=== PATIENT | female | born 1940 | race Caucasian/White ===

== ENCOUNTER 2019-07-20 13:54 | Outpatient (RCR) | payer MEDICARE, SELFPAY ==
--- NOTE | 2019-07-20 16:01 | PTOPEVAL ---
Thank you for referring this patient to [facility]. Please review, sign, date and return this plan of care JANICE. I agree with and certify that the following plan of care is medically necessary. Referring Physician Date Admitting Provider: Attending Provider: PHYSICIAN NOT ON STAFF Referring Provider: *PT Outpatient Evaluation Start: 07/20/19 13:56 Freq: Status: Active Protocol: Document 07/20/19 14:05 Yanely (Rec: 07/20/19 14:54 [facility] [id number]) Therapy Assessment Status Assessment Status Assessment Status Evaluation Evaluation Information Problem Diagnosis s/p lumbar fusion Onset 05/15/19 Subjective Information patient reports she had a Query Text:As Reported By Patient/ lumbar fusion to the spine on Family 02/02/19. she reports she has been walking a bit and doing some exercises at home on her own. she reports she is now coming to therapy for improved core stability and endurance with walking and activities. Prior Level of Function Comments Additional Prior Level of Function patient reports prior to her Comments fusion, she reports she was in a lot of pain in the low back . she reports she now has no pain in the low back. she reports she is still weak in her core and struggles with lifting and walking for increased time and distance. patient reports MD says no treadmill exercise and no lifting 10lbs or more. Pain Assessment Timing of Pain Assessment Timing of Pain Assessment Assessment Pain Scale Pain Scale Used Numeric (1 - 10) Self Report Pain Assessment Lower Back Reported Pain Level 0 Pain Score Pain Score 0: Self Report Cervical and Lumbar ROM Lumbar ROM Lumbar Flexion Active Ankle Query Text:Hands to: Lumbar Extension (0-40) 20 Query Text:Active in Degrees Lumbar Lateral Flexion Right (0-40) 20 Query Text:Active in Degrees Lumbar Lateral Flexion Left (0-40) 20 Query Text:Active in Degrees Lower Extremity Range of Motion General Lower Extremity Range of Motion Reason Not Measured WFL/Left,WFL/Right Gross Lower Extremity Range of Motion except 0 degrees bilateral Comments AROM hip extension Cervical and Lumbar Muscle Testing Lumbar Strength Upper Abdominal Strengt
--- NOTE | 2019-08-15 14:48 | PTOPEVAL ---
Thank you for referring this patient to [facility]. Please review, sign, date and return this plan of care JANICE. I agree with and certify that the following plan of care is medically necessary. Referring Physician Date Admitting Provider: Attending Provider: PHYSICIAN NOT ON STAFF Referring Provider: *PT Outpatient Evaluation Start: 07/20/19 13:56 Freq: Status: Active Protocol: Document 08/15/19 14:14 GIULIANA (Rec: 08/15/19 14:45 GIULIANA [id number]) Therapy Assessment Status Assessment Status Assessment Status Re-evaluation Evaluation Information Problem Diagnosis s/p lumbar fusion Onset 05/15/19 Subjective Information Pt. reports that her back does Query Text:As Reported By Patient/ feel stronger. She reports Family that her walking has improved significantly since beginning rehab. She reports that she still has concern regarding her endurance and ability to walk an adequate distance. She reports that she can complete a full 6 minutes of walking but no longer without fatigue. Pain Assessment Pain Scale Pain Scale Used Numeric (1 - 10) Self Report Pain Assessment Lower Back Reported Pain Level 0 Pain Score Pain Score 0: Self Report Cervical and Lumbar Muscle Testing Lumbar Strength Upper Abdominal Strength 4-Good- Lower Abdominal Strength 3 Fair Lumbar Functional Strength Comments Pt. maintains pelvic tilt to 40 degrees bilateral hip flexion in SLR position. Lower Extremity Muscle Strength Testing Hip Strength Bilateral Hip Flexion Strength 5 Normal Hip Extension Strength 4+ Good + Hip Abduction Strength 4 Good Knee Strength Right Knee Flexion Strength 5 Normal Knee Extension Strength 5 Normal Left Knee Flexion Strength 5 Normal Knee Extension Strength 5 Normal Ankle Strength Bilateral Ankle Dorsiflexion Strength 5 Normal Muscle Length Testing Muscle Length Testing Left Hamstring Length 10 Query Text:(90 - 90 Position) Right Hamstring Length 10 Query Text:(90 - 90 Position) Palpation Assessment Palpation Palpation continue to note moderate tightness of the lumbar paraspinals on this date. Gait Assessment 6 Minute Walk Total Distance (feet) 700 Number of Breaks During Te
== END 2019-09-26 09:22 | disposition home or self-care (01) ==
LOC: CHSPT 13:54
PROVIDERS: PCP Internal Medicine
DX: Z98.890 Other specified postprocedural states (principal)
CPT/HCPCS: 97110; 97161; 97530

== ENCOUNTER 2022-01-01 14:15 | Outpatient (CLI) | payer MEDICARE, OTHER, SELFPAY ==
--- NOTE | ~2022-01-01 | MR_ITS ---
EXAMINATION: MR lumbar spine wo con DATE: 01/01/2022 15:38 INDICATION: Spinal stenosis TECHNIQUE: Magnetic resonance imaging (MRI) of the lumbar spine was performed without intravenous con trast. Sequences included sagittal T2-weighted FSE, sagittal T2-weighted FS FSE, sagittal T1-weighted FSE, and axial T2-weighted FSE. COMPARISON: None FINDINGS: Discectomies and anterior spinal fusion with interbody bone graft cages at L2-L3 through L4-L5. There are also L2-L4 laminectomies and L2-L5 posterior spinal fusion with bilateral vertical jr and pedic le screw fixations. 1-2 mm anterolisthesis L3 on L4. Chronic minimal anterior wedging at T11. Bone ma rrow signal is normal. Annular fissure and mild disc height loss at L5-S1. There is a right paracentr al anterior disc extrusion with disc material extending 1.5 cm caudal to the level of the superior en dplate of S1. Mild disc height loss at T10-T11. The conus medullaris terminates at L1. There is zak l signal in the caudal spinal cord. Paravertebral soft tissues are unremarkable. No abnormally enhanc ing lesions identified. The following disc levels are specifically discussed: T12-L1: The disc does not extend beyond the endplate margin. There is mild bilateral facet joint oste oarthritis. There is no neural foraminal stenosis. There is no central canal stenosis. L1-L2: Disc is mildly bulging. There is hypertrophy of the ligamentum flavum. There is moderate bila teral facet joint osteoarthritis. There is mild bilateral neural foraminal stenosis. There is moderat e central canal stenosis. L2-L3: Combined anterior and posterior spinal fusion There is mild left neural foraminal stenosis. Th ere is no central canal stenosis. L3-L4: Combined anterior and posterior spinal fusion along with posterior decompression with L2 and L 3 laminectomies. There is no neural foraminal stenosis. There is no central canal stenosis. L4-L5: Combined anterior and posterior spinal fusion along with posterior decompression with L3 and L 4 laminectomies.. There is mild bilateral neural foraminal stenosis. There is no central canal stenos is. L5-S1: Disc is bulging superimposed annular fissure. There is severe bilateral facet joint osteoarthr itis. There is mild bilateral neural foraminal stenosis. There is no central canal stenosis. IMPRESSION: 1. L2-L4 laminectomies with instrumented anterior and posterior spinal fusion at L2-L5. 2. Mild lumbar and lower thoracic spondylosis. Reviewed, dictated and finalized at location A. IMPRESSION: 1. L2-L4 laminectomies with instrumented anterior and posterior spinal fusion a t L2-L5. 2. Mild lumbar and lower thoracic spondylosis.
== END 2022-01-01 14:16 | disposition home or self-care (01) ==
PROVIDERS: PCP Internal Medicine; Visit Provider Internal Medicine
DX: M48.00 Spinal stenosis, site unspecified (principal); M47.894 Other spondylosis, thoracic region; M47.896 Other spondylosis, lumbar region; Z98.1 Arthrodesis status
CPT/HCPCS: 72148

== ENCOUNTER 2022-03-10 13:49 | Outpatient (RCR) | payer MEDICARE, OTHER, SELFPAY ==
--- NOTE | 2022-03-10 15:29 | PTOPEVAL1 ---
Evaluation Information Assessment Status Evaluation Diagnosis back pain Onset 02/07/2022 Subjective Information Pt reports severe back pain. She had a fusion L3- L5 5 years ago, and fusion L2-L3 2 years ago. She gets epidurals in her back (for about 2 years). When her pain started, she had pain in the central low back and bilateral buttocks and legs. She feels like now she only has pain in the back, R buttocks, and R leg. She cannot seem to get much of any relief. Pt reports no pain when sitting or laying, but has pain when standing and walking. She reports sleep has been okay as long as she gets into the right position. Reports N/T in the R leg, denies weakness in the leg since she is able to use her cane. Reports no falls. She reports she wants to be able to shop again. Reported Pain Level Pain Score 7: Self Report Assessment PT Clinical Summary Pt presents to physical therapy with low back and R hip pain and demonstrates decreased strength, decreased mobility, and antalgic gait. These deficits limit her ability to walk and stand without pain or difficulty as needed for her activities at home. She was provided with an HEP focused on improving mobility, strength, and core stability within her tolerance. She will benefit from skilled PT to facilitate symptom relief, improve the aforementioned impairments, and return to functional and recreational activities. Plan of Care Interventions Electrical Stimulation,Gait Training,Hot Pack/Cold Pack,Manual Therapy,Neuro Re-education, Therapeutic Activities,Therapeutic Exercise PT Services Indicated Yes Treatment Frequency and 2x week for 10 visits Duration These treatments will address the objective and functional deficits as defined above. The patient will be advanced safely and appropriately in order for the patient to progress towards his/her prior level of function. Additional exercises will be introduced and as well as a comprehensive home exercise program upon discharge, if needed, ?to ensure carryover of functional gains achieved in the clinic. This treatment plan has been reviewed and agreement upon by the patient.
== END 2022-03-14 13:58 | disposition home or self-care (01) ==
LOC: CHSPT 13:49
PROVIDERS: PCP Internal Medicine; Visit Provider Internal Medicine
DX: M54.9 Dorsalgia, unspecified (principal)
CPT/HCPCS: 97014; 97110; 97140; 97161; G0283

== ENCOUNTER 2022-03-17 15:15 | Outpatient (CLI) | payer MEDICARE, OTHER, SELFPAY ==
[2022-03-17 15:42] LABS: Basophils Percent Auto 0.1 % (0.2-1.2); Eosinophils Absolute Auto 0.1 K/mm3 (0-0.3); Eosinophils Percent Auto 1.3 % (0-4.4); Hematocrit 27.7 % (37.0-47.0); Hemoglobin 8.7 g/dL (12.0-15.0); Immature Granulocyte Absolute 0.08 K/mm3 (0.00-0.031); Immature Reticulocyte Fraction 8.5 % (3.0-15.9); Lymphocytes Absolute Auto 1.43 K/mm3 (0.9-3.2); Lymphocytes Percent Auto 18.6 % (18.3-44.2); Mean Corpuscular HGB Conc 31.4 g/dl (32-36); Mean Corpuscular Hemoglobin 30.7 pg (26-34); Mean Corpuscular Volume 97.9 fl (80-100); Mean Platelet Volume 8.2 fl (7.4-10.4); Monocytes Absolute Auto 0.6 K/mm3 (0.1-0.6); Monocytes Percent Auto 8.1 % (2.6-8.5); Neutrophils Absolute Auto 5.5 K/mm3 (1.3-6.7); Neutrophils Percent Auto 70.9 % (45.5-73.1); Platelet Count Result 214 k/mm3 (150-375); Red Blood Count 2.83 M/mm3 (4.2-5.4); Red Cell Distribution Width 13.4 % (11.5-14.5); Reticulocyte Hemoglobin Conten 35.2 pg (28.2-35.7); Reticulocyte Percent 3.66 % (0.7-4.3); White Blood Count 7.7 K/mm3 (4.5-10.0)
[2022-03-17 16:29] LABS: Iron 46 ug/dL (37-170)
[2022-03-17 16:31] LABS: Alanine Aminotransferase 24 U/L (6-35); Albumin Level 3.9 g/dL (3.5-5.1); Alkaline Phosphatase 63 U/L (38-126); Anion Gap 13 mmol/L (8-16); Aspartate Amino Transferase 26 U/L (14-36); Bilirubin,Total 0.3 mg/dL (0.2-1.3); Blood Urea Nitrogen 46 mg/dL (7-17); Calcium 9.2 mg/dL (8.4-10.2); Carbon Dioxide 23 mmol/L (22-30); Chloride 101 mmol/L (98-107); Estimated Glomerular Filt Rate 24; Glucose 272 mg/dL (65-110); Potassium 4.9 mmol/L (3.4-5.0); Sodium 137 mmol/L (137-145)
[2022-03-17 16:38] LABS: Immunoglobulin A 120 mg/dL (70-400); Immunoglobulin G 465 mg/dL (700-1600); Immunoglobulin M 75 mg/dL (40-230)
[2022-03-17 16:41] LABS: Percent Iron Saturation 16 % (20-50)
[2022-03-17 17:37] LABS: Folic Acid > 20.0 ng/mL (2.76->20)
[2022-03-19 22:56] LABS: Albumin 3.5 g/dL (3.8-4.8); Alpha 1 Globulin 0.3 g/dL (0.2-0.3); Alpha 2 Globulin 1.1 g/dL (0.5-0.9); Beta 1 Globulin 0.4 g/dL (0.4-0.6); Gamma Globulin 0.5 g/dL (0.8-1.7); Protein, Total 6.2 g/dL (6.1-8.1)
[2022-03-20 07:21] LABS: Kappa\\Lambda Light Chains 0.87 (0.26-1.65); Lambda Light Chain 24.6 mg/L (5.7-26.3)
== END 2022-03-17 15:16 | disposition home or self-care (01) ==
PROVIDERS: PCP Internal Medicine; Visit Provider Internal Medicine Hematology & Oncology
DX: D64.9 Anemia, unspecified (principal)
CPT/HCPCS: 36415; 80053; 82607; 82728; 82746; 82784; 83540; 83550; 83883; 84155; 84165; 85025; 85046

== ENCOUNTER 2022-03-27 15:08 | Outpatient (CLI) | payer MEDICARE, OTHER, SELFPAY ==
--- NOTE | ~2022-03-27 | US_ITS ---
US arterial ankle brachial ind INDICATION: Claudication. Hip pain. TECHNIQUE: Segmental pressures and plethysmographic and Doppler waveforms of the brachial and lower e xtremity arteries were obtained. COMPARISON: None. FINDINGS: Right and left brachial artery pressures of 177 mm Hg and 175 mm Hg, respectively, are concordant (no rmal difference <= 30 mmHg). The right ankle-brachial index (ARIK) is 1.19 (normal >= 0.9-1.0). The right great toe-brachial index (TBI) is 0.97 (normal >= 0.60). The left ARIK is 1.19. The left TBI is 0.76. IMPRESSION: 1. Normal bilateral ankle and toe brachial indices. Reviewed, dictated and finalized at location B.
== END 2022-03-27 15:09 | disposition home or self-care (01) ==
LOC: CHSIMG 15:10
PROVIDERS: PCP Internal Medicine; Visit Provider Internal Medicine
DX: M25.551 Pain in right hip (principal); I73.9 Peripheral vascular disease, unspecified
CPT/HCPCS: 93922

== ENCOUNTER 2023-04-02 14:29 | Outpatient (CLI) | payer MEDICARE, OTHER, SELFPAY ==
--- NOTE | ~2023-04-02 | CT_ITS ---
EXAMINATION: CT lumbar spine wo con DATE: 04/02/2023 15:27 INDICATION: Spinal stenosis, lumbosacral region. TECHNIQUE: Computed tomography (CT) of the lumbar spine was performed without intravenous contrast. A utomated exposure control and iterative reconstruction technique were employed. The dose-length produ ct was 754.12 mGy-cm. COMPARISON: Lumbar spine MRI 04/02/2023 FINDINGS: There is 3 mm anterolisthesis of L3 on L4. Vertebral body heights are normal. There are lucius nges of anterior and posterior fusion procedures from L2 to L5 with interbody devices and pedicle scr ews. There is severely decreased disc height at L5-S1 with endplate remodeling. The following disc le vels are specifically discussed: L1-L2: The disc is bulging. There is severe bilateral facet joint osteoarthritis. There is mild later al neural foraminal stenosis. There is mild central canal stenosis. L2-L3: There is no facet joint hypertrophy. There is mild left neural foraminal stenosis. There is no central canal stenosis. There is posterior decompression. L3-L4: There is no facet joint hypertrophy. There is no neural foraminal stenosis. There is no centra l canal stenosis. There is posterior decompression. L4-L5: There is no facet joint hypertrophy. There is mild lateral neural foraminal stenosis. There is no central canal stenosis. There is posterior decompression. L5-S1: The disc is bulging. There is severe bilateral facet joint osteoarthritis. There is moderate b ilateral neural foraminal stenosis. There is mild central canal stenosis. IMPRESSION: 1. Severe lower lumbar spondylosis. 2. Anterior and posterior fusion procedures from L2 to L5. Reviewed, dictated and finalized at location E.
--- NOTE | ~2023-04-02 | MR_ITS ---
EXAMINATION: MR lumbar spine wo con DATE: 04/02/2023 15:13 INDICATION: Spinal stenosis, lumbosacral region. TECHNIQUE: Magnetic resonance imaging (MRI) of the lumbar spine was performed without intravenous con trast. Sequences included sagittal T2-weighted FSE, sagittal T2-weighted FS FSE, sagittal T1-weighted FSE, and axial T2-weighted FSE. COMPARISON: Lumbar spine MRI 706/ FINDINGS: There is 3 mm anterolisthesis of L3 on L4. There are changes of anterior and posterior fusi on procedures from L2 to L5 with discectomies, interbody devices, and pedicle screws. There is severe ly decreased disc height at L5-S1 with endplate remodeling. The distal spinal cord signal intensity i s normal. The conus medullaris is at L1. The following disc levels are specifically discussed: L1-L2: The disc is bulging. There is severe bilateral facet joint osteoarthritis. There is mild bilat eral neural foraminal stenosis. There is mild central canal stenosis. L2-L3: There is mild left facet joint hypertrophy. There is mild left neural foraminal stenosis. Ther e is no central canal stenosis. There is posterior decompression. L3-L4: There is no facet joint hypertrophy. There is no neural foraminal stenosis. There is no centra l canal stenosis. There is posterior decompression. L4-L5: There is no facet joint hypertrophy. There is mild bilateral neural foraminal stenosis. There is no central canal stenosis. There is posterior decompression. L5-S1: The disc is bulging and has an annular fissure. There is severe bilateral facet joint osteoart hritis. There is moderate bilateral neural foraminal stenosis. There is mild central canal stenosis. IMPRESSION: 1. Severe lower lumbar spondylosis, worsened from 01/01/2022. 2. Anterior and posterior fusion procedures from L2 to L5. Reviewed, dictated and finalized at location E.
== END 2023-04-02 14:30 | disposition home or self-care (01) ==
PROVIDERS: PCP Internal Medicine; Visit Provider Neurological Surgery
DX: M48.07 Spinal stenosis, lumbosacral region (principal); M47.896 Other spondylosis, lumbar region; Z98.1 Arthrodesis status
CPT/HCPCS: 72131; 72148

== ENCOUNTER 2023-05-06 09:37 | Outpatient (CLI) | payer MEDICARE, OTHER, SELFPAY ==
--- NOTE | ~2023-05-06 | US_ITS ---
EXAMINATION: US renal BI DATE: 05/06/2023 10:19 INDICATION: Chronic kidney disease TECHNIQUE: Multiple grayscale and Doppler ultrasound images of the kidneys were obtained. COMPARISON: None. FINDINGS: The right kidney measures 10.5 x 5.0 x 4.7 cm. The left kidney measures 10.0 x 4.1 x 4.7 cm . The kidneys demonstrate increased parenchymal echogenicity. There is no hydronephrosis. The bladder is normal. IMPRESSION: 1. Medical renal disease. Reviewed, dictated and finalized at location B. LUGGER IMPRESSION: 1. Medical renal disease.
[2023-05-06 10:26] LABS: Hematocrit 30.9 % (35.0-42.0); Hemoglobin 9.7 g/dL (11.7-13.8); Mean Corpuscular HGB Conc 31.4 g/dL (32.0-36.0); Mean Corpuscular Hemoglobin 29.6 pg (27.0-31.0); Mean Corpuscular Volume 94.2 fL (78.0-102.0); Mean Platelet Volume 8.5 fl (9.2-11.8); Platelet Count Result 211 K/mm3 (150-420); Red Blood Count 3.28 M/mm3 (4.20-5.40); Red Cell Distribution Width 13.8 % (11.6-14.4); White Blood Count 7.4 K/mm3 (4.8-10.8)
[2023-05-06 10:50] LABS: Albumin Level 3.7 g/dL (3.4-5.0); Anion Gap 10 mmol/L (8-16); Blood Urea Nitrogen 25 mg/dL (7-18); Calcium 9.3 mg/dL (8.5-10.1); Carbon Dioxide 28 mmol/L (21-32); Chloride 100 mmol/L (98-108); Estimated Glomerular Filt Rate 38; Glucose 124 mg/dL (70-99); Osmolality Calculated 291 mOsm/kg (285-295); Phosphorus 3.6 mg/dL (2.6-4.7); Potassium 3.8 mmol/L (3.5-5.1); Sodium 138 mmol/L (136-145)
[2023-05-09 21:24] LABS: Parathyroid Intact 52 pg/mL (14-64)
== END 2023-05-06 09:38 | disposition home or self-care (01) ==
LOC: CHSIMG 09:39
PROVIDERS: PCP Internal Medicine; Visit Provider Internal Medicine Nephrology
DX: M46.1 Sacroiliitis, not elsewhere classified (principal); N18.32 Chronic kidney disease, stage 3b
CPT/HCPCS: 36415; 76775; 80069; 83970; 85027

== ENCOUNTER 2023-08-13 13:33 | Outpatient (CLI) | payer MEDICARE, OTHER, SELFPAY ==
[2023-08-13 14:20] LABS: Hematocrit 33.1 % (37.0-47.0); Hemoglobin 10.3 g/dL (12.0-15.0); Mean Corpuscular HGB Conc 31.1 g/dl (32-36); Mean Corpuscular Hemoglobin 28.7 pg (26-34); Mean Corpuscular Volume 92.2 fl (80-100); Mean Platelet Volume 9.1 fl (7.4-10.4); Platelet Count Result 238 k/mm3 (150-375); Red Blood Count 3.59 M/mm3 (4.2-5.4); Red Cell Distribution Width 14.2 % (11.5-14.5); White Blood Count 7.4 K/mm3 (4.5-10.0)
[2023-08-13 14:20] LABS: Appearance Urine Clear (Clear); Bilirubin Urine Negative (Negative); Blood Urine Negative (Negative); Color Urine Yellow (Yellow); Glucose Urine UA Negative (Negative); Ketones Urine Negative (Negative); Leukocyte Esterase Ur Negative LEU/UL (Negative); Nitrate Urine Negative (Negative); Protein Urine Negative (Negative); Specific Grav Ur 1.006 (1.001-1.035); Urobilinogen Urine 0.2 mg/dL (<2.0); pH Urine 7.5 (5.0-9.0)
[2023-08-13 14:28] LABS: Anion Gap 10 mmol/L (8-16); Blood Urea Nitrogen 30 mg/dL (7-17); Calcium 9.9 mg/dL (8.4-10.2); Carbon Dioxide 27 mmol/L (22-30); Chloride 103 mmol/L (98-107); Estimated Glomerular Filt Rate 43; Glucose 134 mg/dL (65-110); Potassium 4.1 mmol/L (3.4-5.0); Sodium 140 mmol/L (137-145)
[2023-08-13 14:31] LABS: Prothrombin Time 13.8 Seconds (11.1-14.7)
[2023-08-13 14:32] LABS: Partial Thromboplastin Time 35.3 SECONDS (22.3-36.8)
[2023-08-13 14:52] LABS: Add Urine Microscopic? NO
== END 2023-08-13 13:34 | disposition home or self-care (01) ==
LOC: ANHSURGERY 13:39
PROVIDERS: PCP Internal Medicine; Visit Provider Neurological Surgery
DX: N18.32 Chronic kidney disease, stage 3b (principal); M48.061 Spinal stenosis, lumbar region without neurogenic claudication; Z01.818 Encounter for other preprocedural examination
CPT/HCPCS: 36415; 80048; 81003; 85027; 85610; 85730; 86850; 86900; 86901

== ENCOUNTER 2023-08-19 14:44 | Observation (INO) | payer MEDICARE, OTHER, SELFPAY ==
[2023-08-06 12:03] VITALS: BMI 29.3
--- NOTE | 2023-08-06 12:20 | PC.NURSE ---
PRE-OP INSTRUCTIONS, PLEASE READ CAREFULLY Report to the Outpatient Waiting Room, entrance under the green pavilion located off [facility], at time _0800_ on date _08/18/23_. Planned Procedure Time: _1000_. PACK A SMALL OVERNIGHT BAG AND LEAVE IN THE CAR Time changes happen often and if your time is changed the preop area will call you the afternoon before. - You and your visitor will be asked to self-screen and do not enter if you have any COVID symptoms. - A mask is optional within the hospital at this time. Patients may have clear liquids (water, carbonated beverages, clear teas, apple juice) until 3 hours prior to surgery (0700 AM) with a maximum of 20 ounces. - No food from midnight until time of surgery Take the following medications with a SIP of water the morning of surgery: _CARVEDILOL, HYDRALAZINE, & BUSPIRONE, TYLENOL IF NEEDED_ DO NOT STOP ANY OF YOUR OTHER PRESCRIPTION MEDICATIONS PRIOR TO SURGERY ?EXCEPT THE FOLLOWING Medications to discontinue per DR. MANNING - _ELIQUIS - OFFICE WILL CALL WITH INSTRUCTIONS ON WHEN TO STOP Medications to discontinue per ANESTHESIA - _MULTIVITAMIN 3 DAYS PRIOR TO SURGERY, Date to take last dose 08/14/23_ Please no make-up, nail romanian, hairspray, perfume, deodorant, or body powder the day of surgery. No jewelry (including any body piercings) or valuables the day of surgery, leave them at home. Please take a shower or bath the night before, or the morning of, surgery with an antibacterial soap. Wear comfortable, loose fitting clothing. - Jewelry must be removed prior to entering the operating room. Rings and piercings that are not removed may be cut off. - The hospital will not accept responsibility for valuables. - Please leave all valuables, including medications, at home the day of surgery. If you are going home after surgery, a licensed road driver must drive you home. - NO public transportation without another adult if you receive anesthesia. - We recommend that an adult stay with you for 24 hours following discharge. - We also recommend that you do not drive, make important decision, drink alcoholic beverages, or take any drugs that were not prescribed by your health care provider for at least 24 hours after your discharge time. Follow any additional instructions given to you from your surgeon. If you or anyone in your household have experienced Covid symptoms in the past week, please notify your surgeon or the nurse liaison at the phone number below for possible testing. Telephone instructions given to _PATIENT_and asked if any additional questions and then verbalized understanding. Patient advised to call surgeon office or pre surgery nurse liaison [phone] if any additional questions.
[2023-08-18] VITALS (17 sets, daily range): BP systolic 127–179; BP diastolic 54–76; PULSE 77–90; RESP 12–19; TEMP 36.3–36.7; O2SAT 96–100
[2023-08-18] MEDS: LACTATED RINGERS 1,000 ML 30 ML IV CONT ×2 (09:00→14:12)
[2023-08-18 09:24] LABS: Glucose Point of Care 132 mg/dl (65-105)
--- NOTE | 2023-08-18 09:36 | WPDANESEPPF ---
Anes - Initial Pre Proc Eval Procedure: Operation Date: 08/18/23 10:00 Proposed Procedures p L1-2 Lumbar Laminectomy, L5-S1 Posterior Lumbar Interbody Fusion with S2 Screws - Sanjay Collado MD Date/Time: 08/18/23 09:36 Surgeon: Sanjay Collado MD Pre Op Diagnosis: L1-2 stenosis, L5-S1 spondylosis and NFN Patient Data Age: 83 Gender: F Height: 1.52 m Weight: 68.18 kg Allergies Allergy/AdvReac Type Severity Reaction Status Date / Time clonidine Allergy Mild Rash Verified 08/06/23 12:00 flurbiprofen [From Ansaid] Allergy Mild Rash Verified 08/06/23 12:00 Home Medications Medication Instructions Recorded Confirmed Type atorvastatin 40 mg tablet 40 mg PO DAILY 03/17/22 08/06/23 History ferrous sulfate 140 mg (45 mg 140 mg PO DAILY 10/27/22 08/06/23 History iron) tablet,extended release carvedilol 12.5 mg tablet 12.5 mg PO BID 12/29/22 08/06/23 History multivitamin 1 tablet PO DAILY 12/29/22 08/06/23 History buspirone 10 mg tablet 10 mg PO DAILY PRN Anxiety 05/07/23 08/06/23 History losartan 25 mg tablet 25 mg PO HS 05/07/23 08/06/23 History furosemide 20 mg tablet 20 mg PO QAM 05/12/23 08/06/23 History hydralazine 100 mg tablet 100 mg PO BID 05/12/23 08/06/23 History acetaminophen 500 mg tablet 500 mg PO QID PRN Pain 08/06/23 08/06/23 History apixaban 2.5 mg tablet (Eliquis) 2.5 mg BID 08/06/23 08/06/23 History Laboratory Tests 08/18/23 09:20 POC Capillary Glucose 132 H mg/dl (65-105) Patient hx anesthesia problems: none Family hx anesthesia problems: none Results Review: All pre-operative results and documents have been reviewed as part of the pre-operative evaluation. [facility] Past Medical History Medical History Diabetes Feeling of incomplete bladder emptying Hesitancy of micturition History of squamous cell carcinoma Kidney disease Surgical History Surgical History H/O arthroscopy of knee H/O breast biopsy H/O laminectomy H/O: hysterectomy Total knee replacement status Family History Family History Other Breast cancer Diabetes mellitus Heart disease Hypertension Social History Social History Social History: Honey is very confident filling out medical forms. In the last 12 months she has not received assistance from an organization or program. Smoking status: Never smoker Second hand tobacco smoke exposure: No Additional smoking assessment comments: PT STATES NEVER SMOKED Alcohol intake: never Substance use: never Substance use type: does not use Lack of Transportation: No Lack of Food: Never True Current Housing: I Have Housing Concerned About Future Housing: No Difficulty Paying Gas/Electric Bills: No Difficulty Paying for Meds: No Currently Unemployed: No Education: High School Diploma/GED Difficulty w/ Childcare or Family Care: No Living arrangements: with family Occupation/Education: retired Gender identity (if verbalized by the patient): Female Spiritual care concerns: No Anes - Eval Final PreProcedure Day of Procedure 08/18/23 09:36 Patient weight: obese Heart: regular rate and rhythm Lungs: clear to auscultation Airway: Mallampati scale class III Neurological: alert and oriented Last oral intake: >/= 8 hours ASA classification: III Emergent: no Anesthetic plan: proceed Anesthesia type and monitoring: general ETT and standard monitoring Results Review: All pre-operative results and documents have been reviewed as part of the pre-operative evaluation. Informed Consent: The patient's anesthetic plan and its attendant risks and benefits were discussed with the patient/family/POA. Questions were solicited and answers provided to the satisfaction of the patient/family/POA.
--- NOTE | 2023-08-18 10:25 | PM.IMHP ---
H&P: HPI History of Present Illness Date/Time: 08/18/23 10:25 Chief Complaint: Back and leg pain Narrative: Honey Abarca is an 82-year-old female here today for her 3 month follow up. She has sciatic pain in her back when she stands and walks. She was seeing Dr. Lopez of Pain Management for injections until he told her that there is nothing more he could do for her. She also participated in 24 physical therapy sessions without benefit. She has pain on the right side of her back that radiates down her right leg. She feels like she has a jr stuck up [my] butt. She has problems with her balance and states that she has to use a cane as an assistive device when she walks as she has fallen a couple of times. She states that she is starting to have some neuropathy, I guess and has some tingling in her feet but she denies numbness in either lower extremity or anywhere else. She is limited and distracted daily the discomfort in her back and right leg. She is not having any new bowel or bladder difficulty or any other new constitutional problems at this time.? Her discomfort seems to be worse when she stands and walks and better if she sits.? She has recently undergone new MRI evaluation and CT scan which we spoke with her about over the phone.? She is here to review those studies today and decide on a course of action going forward.? She does not have specific muscle group weakness or dermatomal numbness.? She is not having bowel or bladder difficulty that is new. Review of Systems Review of Systems: Review of Systems Const Details: Const All systems reviewed & are unremarkable except as noted in HPI and below Denies chills, Denies fever(s), Reports frequent falls, Denies weakness, Denies weight gain and Denies weight loss Eyes Denies change in vision and Denies diplopia ENT Denies disequilibrium Card Denies chest pain and Denies dyspnea Resp Denies cough and Denies dyspnea GI Denies abdominal pain, Denies change in bowel habits, Denies fecal incontinence and Denies vomiting Denies hematuria, Denies urinary frequency, Denies difficulty voiding, Denies dysuria, Denies urinary incontinence, Denies urinary hesitancy and Denies urinary urgency Musc Reports as per HPI, Reports abnormal gait, Reports back pain, Reports radiating pain into limb and Reports tingling Skin/ Breast Reports system reviewed and no additional complaints, except as documented Neuro Reports as per HPI, Reports abnormal gait, Reports frequent falls, Denies focal weakness, Reports tingling, Denies disequilibrium and Denies weakness Psych Reports no additional complaints, Denies depression and Denies hopelessness Endo Reports no additional complaints and Denies polyuria Srikanth/ Lymph Reports no additional complaints Aller/ Immun Reports no additional complaints PMFSH Past Medical History Medical History Diabetes Feeling of incomplete bladder emptying Hesitancy of micturition History of squamous cell carcinoma Kidney disease Surgical History Surgical History H/O arthroscopy of knee H/O breast biopsy H/O laminectomy H/O: hysterectomy Total knee replacement status Family History Family History Other Breast cancer Diabetes mellitus Heart disease Hypertension Social History Social History Social History: Honey is very confident filling out medical forms. In the last 12 months she has not received assistance from an organization or program. Smoking status: Never smoker Second hand tobacco smoke exposure: No Additional smoking assessment comments: PT STATES NEVER SMOKED Alcohol intake: never Substance use: never Substance use type: does not use Lack of Transportation: No Lack of Food: Never True Current Housing: I Have Housing Concern
--- NOTE | 2023-08-18 10:28 | WPDHPUPDATE1 ---
History and Physical Update Update Date/Time: 08/18/23 10:28 History and Physical has been reviewed, including an updated exam of the patient. There are NO changes in the patient's condition. Risks, benefits, and alternatives have been discussed and questions answered. Patient agrees to proceed with procedure.
[2023-08-18] MEDS: ceFAZolin 2 GM/D5W 50 ML 2 GM/50 ML BAG IVPB (10:51)
[2023-08-18] MEDS: LIDO 1%/EPINEPHRINE 1:100,000 50 ML VIAL 10 ML INFILTRATE (11:41)
--- NOTE | 2023-08-18 13:51 | SUR.OPER ---
150mL of clear yellow urine drained from saez
--- NOTE | 2023-08-18 14:31 | W.PM.PROC2 ---
Procedure Note - Detailed Date of Procedure 08/18/23 Pre-op Diagnosis L1-2 stenosis, L5-S1 spondylosis and NFN Post-op Diagnosis Same Procedure Performed L1-2 laminectomy, L5-S1 laminectomy and bilateral facetectomy, L5-S1 complete diskectomy and interbody arthrodesis utilizing titanium interbody devices and local autograft, L5-S1 pedicle screw instrumentation Surgeon Sanjay Collado MD Anesthesia General Description of Procedure the patient was brought to the operating room in the supine position, was sedated, intubated and placed under general anesthesia in routine fashion. She was then turned into the prone position on a Travon frame. The of operation on her back was examined, marked for incision, prepped and draped in routine sterile fashion. Incision was marked over the L1 through S1 spinous processes in the midline. This area was injected with 0.5% lidocaine with [id number] epinephrine. Intravenous antibiotics given prior to incision. Incision was made with a 10 blade scalpel down to the lumbodorsal fascia. A subperiosteal dissection of the muscle soft tissue away from spinous process and lamina at L1-2 and at L5-S1 was performed with a subperiosteal elevator and Bovie cautery. A verifying x-rays obtained to verify the level of operation. Spinous processes at L1 and L5 were removed with a [place] rongeur. MIDAS Rainer drill was used to thin the lamina in the midline at L1. Kerrison punches and curved curettes were used to remove bone and ligament in the midline exposing the dura. In the lateral recess a curved curette was used to define a plane with the dura and her lift overgrown ligament. Overgrown ligament bone was removed in the lateral recess bilaterally using Kerrison punches. This was done until a dental instrument could be placed in the lateral epidural space to confirm lack of compression. Kerrison punches and curved curette and a [place] rongeur were used to remove lamina in the midline and to the soft contents of the canal were encountered at L5-S1. A [employer] Rainer drill was used to resect the pars bilaterally at L5 and the inferior torque the process and facet of L5 could be removed bilaterally. These +spinous processes were stripped free of soft tissue and morselized for later use as interbody autograft. Kerrison punches and curved curettes were used to define a plane with the dura and remove bone ligament flush with the pedicle and through the foramina widely decompressing the exiting nerve roots. With the thecal sac retracted and protected the disc space was entered bilaterally using an 11 blade scalpel. Scrapers a very sizes, curettes of various configurations, pituitary rongeur and a rasp were used to remove as much cartilaginous endplate disc material as possible down to bleeding cortical flat surfaces on the opposing bones. The disc space was incised a 9 mm interbody devices were chosen and filled with local autograft bone. The disc space was likewise filled with local autograft bone medially and anteriorly. The interbody devices were then placed with 2-3 mm countersink within the Disc space bilaterally. Pedicle screw instrumentation was then performed at S1 by observing and palpating the pedicle a hole was made in superior to could process above the pedicle using a [employer] Rainer drill with an a.m. 8 bit. The pedicle was then cannulated with a pedicle probe, checked for continuity the ball probe, tapped with a 5.5 mm tap and a 6.5 by 45 mm screw was placed in bicortical fashion. These were solidly within the bone. Attempts were made to discover an entry point for an S2 screw but not enough confidence existed for placement of that screw. lateral connectors were placed between the L4-L5 screws on either side. Rods were fit between these lateral connectors in the screw heads at S1 and secured in position using the caps for that purpose. Lateral connectors were also secured. These were definitively tightened with a torque and anti
[2023-08-18] MEDS: fentaNYL CITRATE INJ (*CRX) 100 MCG/2 ML VIAL 25 MCG IV PUSH ×6 (14:45→15:53)
[2023-08-18 14:59] LABS: Glucose Point of Care 202 mg/dl (65-105)
--- NOTE | 2023-08-18 15:02 | SUR.PHASEI ---
Dr. Mcgrath aware of 202 BG. RN not sure why we checked BG because patient doesn't take anything for Diabetes at home.
--- NOTE | 2023-08-18 16:08 | SUR.PHASEI ---
1600: Patient meets PACU discharge criteria, unit RN unavailable at this time. Patient placed in extended recovery status.
--- NOTE | 2023-08-18 16:40 | ADMGEN ---
This patient, Honey Abarca, was admitted to Medical Room 343-01. Patient/family oriented to hospital policies and general routines including ID bracelet, bed and alarms, visiting hours, pain management, procedures, bathroom and other care routines, personal items, smoking policy, room service/diet, and visiting hours. Information on how to activate the Rapid Response Team has been discussed. Patient/Family are encouraged to report perceived risks to care and to ask questions if they do not understand what they are told or what they should do.
[2023-08-18] MEDS: ceFAZolin 1 GM/NS 50 ML 1 GM/50 ML BAG IVPB (18:58)
[2023-08-18] MEDS: ACETAMINOPHEN 500 MG TABLET PO (18:58)
[2023-08-18] MEDS: hydrALAZINE HCL 50 MG TABLET 100 MG PO (20:39)
[2023-08-18] MEDS: carvediloL 12.5 MG TABLET PO (20:39)
[2023-08-18] MEDS: HYDROcodone/acetaminophen (*CRX) 5-325 MG TABLET 1 TAB PO (20:39)
[2023-08-18] MEDS: LOSARTAN POTASSIUM 25 MG TABLET PO (20:40)
--- NOTE | ~2023-08-19 | XR_ITS ---
EXAMINATION: XR fluoroscopy no charge INDICATION: Lumbar laminectomy/interbody fusion TECHNIQUE: Five intraoperative fluoroscopic images are submitted for review. Total fluoroscopic time is 3.1 seconds. COMPARISON: Lumbar spine CT dated 04/02/2023 FINDINGS: Fluoroscopic images demonstrate anterior and posterior fusion from L2 through S1. Please re niyah to procedure note for full details. IMPRESSION: 1. Please refer to procedure note for full details. Reviewed, dictated and finalized at location L. NILE OFFICER
[2023-08-19] MEDS: ceFAZolin 1 GM/NS 50 ML 1 GM/50 ML BAG IVPB ×2 (00:59→11:51)
[2023-08-19 04:37] VITALS: BP 114/51; PULSE 88; RESP 18; TEMP 36.5; O2SAT 98
[2023-08-19] MEDS: HYDROcodone/acetaminophen (*CRX) 5-325 MG TABLET 1 TAB PO ×2 (06:01→21:22)
[2023-08-19 08:24] VITALS: PULSE 88
[2023-08-19] MEDS: FERROUS SULFATE DRIED 142 MG TABCR PO (08:24)
[2023-08-19] MEDS: DOCUSATE SODIUM 100 MG CAPSULE PO (08:24)
[2023-08-19] MEDS: carvediloL 12.5 MG TABLET PO ×2 (08:24→21:22)
[2023-08-19] MEDS: ATORVASTATIN 40 MG TABLET PO (08:24)
[2023-08-19] MEDS: hydrALAZINE HCL 50 MG TABLET 100 MG PO ×2 (08:24→21:23)
[2023-08-19] MEDS: FUROSEMIDE 20 MG TABLET PO (08:24)
[2023-08-19] MEDS: MULTIVITAMINS THERAPEUTIC TAB (*BKC) 1 TABLET PO (08:24)
[2023-08-19 11:21] VITALS: BP 125/50; PULSE 71; RESP 18; TEMP 36.6; O2SAT 100
--- NOTE | 2023-08-19 14:07 | WPDNEUROSGPN ---
Progress Note: A&P Assessment and Plan (1) Status post lumbar spinal arthrodesis: Code(s): Z98.1 - Arthrodesis status Status: Acute Plan s/p L1-2 laminectomy, L5-S1 PLIF on 08/18 Plan: -Remove hemovac drain today -Remove saez catheter -Mobilize in halls -Anticipate discharge home tomorrow morning Subjective Date/time seen: 08/19/23 14:07 Interval history: Doing very well today with adequately-controlled back pain. She denies any leg pain or paresthesias. Ambulated with therapy without difficulty. She is very happy with her recovery. Review of Systems Review of Systems: All systems reviewed & are unremarkable except as noted in HPI and below Exam Narrative: Alert, oriented, mildly confused about present events Moving both legs with symmetric and at least antigravity strength Sensation intact to light touch Incision c/d/i with dermabond in place Objective Data Vital Signs Vital Signs: Vital Signs - 24 hr 08/18/23 14:12 08/18/23 14:25 08/18/23 14:40 Temperature 97.4 F L Pulse Rate 81 81 78 Respiratory Rate 12 16 18 Blood Pressure 179/70 H 145/61 H 155/70 H Pulse Oximetry 100 100 100 Oxygen Delivery Simple Face Mask Simple Face Mask Simple Face Mask Oxygen Flow Rate 6 8 8 08/18/23 14:55 08/18/23 15:10 08/18/23 15:25 Temperature Pulse Rate 78 81 79 Respiratory Rate 16 19 15 Blood Pressure 134/70 148/70 H 156/62 H Pulse Oximetry 100 98 100 Oxygen Delivery Room Air Room Air Nasal Cannula Oxygen Flow Rate 2 08/18/23 15:40 08/18/23 15:55 08/18/23 16:10 Temperature Pulse Rate 77 79 81 Respiratory Rate 15 18 17 Blood Pressure 157/62 H 148/65 H 157/67 H Pulse Oximetry 100 100 100 Oxygen Delivery Nasal Cannula Nasal Cannula Nasal Cannula Oxygen Flow Rate 1 1 1 08/18/23 16:50 08/18/23 17:05 08/18/23 17:35 Temperature 97.7 F 97.9 F 97.9 F Pulse Rate 78 80 79 Respiratory Rate 16 16 16 Blood Pressure 176/63 H 159/62 H 158/76 H Pulse Oximetry 100 100 100 Oxygen Delivery Oxygen Flow Rate 08/18/23 18:05 08/18/23 20:39 08/18/23 19:21 Temperature 98.0 F 97.7 F Pulse Rate 85 80 90 Respiratory Rate 16 18 Blood Pressure 149/66 H 147/54 H Pulse Oximetry 100 98 Oxygen Delivery Oxygen Flow Rate 08/18/23 22:09 08/18/23 23:21 08/18/23 20:00 Temperature 97.6 F Pulse Rate 86 Respiratory Rate 16 Blood Pressure 127/61 Pulse Oximetry 96 Oxygen Delivery CPAP Room Air Oxygen Flow Rate 08/19/23 04:37 08/19/23 07:59 08/19/23 08:24 Temperature 97.7 F Pulse Rate 88 88 Respiratory Rate 18 Blood Pressure 114/51 L Pulse Oximetry 98 Oxygen Delivery Room Air Oxygen Flow Rate 08/19/23 08:20 Temperature Pulse Rate Respiratory Rate Blood Pressure Pulse Oximetry Oxygen Delivery Room Air Oxygen Flow Rate Intake/Output Intake/Output: Intake & Output 08/16/23 08/17/23 08/18/23 08/19/23 23:59 23:59 23:59 23:59 Intake Total 2660 540 Output Total 80 710 Balance 2580 -170 Meds/Results Medications: Active Medications Generic Name Dose Route Start Last Admin Trade Name Freq PRN Reason Stop Dose Admin Acetaminophen 500 mg 08/18/23 16:21 08/18/23 18:58 Acetaminophen 500 Mg Tablet PO 500 mg QID PRN Administration Fever Hydrocodone Bitart/Acetaminophen 1 tab 08/18/23 16:21 08/19/23 06:01 Hydrocodone/Acetaminophen (*Crx) 5-325 Mg Tablet PO 1 tab Q4H PRN Administration Mild Pain (1-3) Hydrocodone Bitart/Acetaminophen 1 tab 08/18/23 16:21 Hydrocodone/Acetaminophen (*Crx) 10-325 Mg Tablet PO Q4H PRN Moderate Pain (4-6) Al Hydrox/Mg Hydrox/Simethicone 20 ml 08/18/23 16:21 Mag Hydrox/Al Hydrox/Simeth 30 Ml Udc PO Q4H PRN Indigestion/Heartburn Atorvastatin Calcium 40 mg 08/19/23 09:00 08/19/23 08:24 Atorvastatin 40 Mg Tablet PO 40 mg DAILY TRAVIS Administration Bisacodyl 10 mg 08/18/23 16:21 Bisacodyl 10 Mg Suppository REC
--- NOTE | 2023-08-19 14:41 | WPDANESPN ---
Anes - Prog Note Post-Op Date/Time: 08/19/23 14:41 Cardiovascular status: normal Respiratory status: normal Airway patency: baseline Mental status: baseline Post-Op hydration status: normal Vital Signs: Last Vital Signs Temp 97.9 F 08/19/23 11:21 Pulse 71 08/19/23 11:21 Resp 18 08/19/23 11:21 BP 125/50 L 08/19/23 11:21 Pulse Ox 100 08/19/23 11:21 O2 Del Method Room Air 08/19/23 08:20 O2 Flow Rate 1 08/18/23 16:10 Pain Score (VAS): 0/10 I/O: Intake & Output 08/18/23 08/19/23 08/19/23 23:59 07:59 15:59 Intake Total 1110 300 650 Output Total 710 Balance 1110 -410 650 08/18/23 14:55 POC Capillary Glucose 202 H Post-procedural complaints: none Patient Feedback: Patient satisfied with anesthetic care.
[2023-08-19] MEDS: ACETAMINOPHEN 500 MG TABLET PO (16:42)
[2023-08-19 20:11] VITALS: BP 142/58; PULSE 79; RESP 18; TEMP 36.6; O2SAT 100
[2023-08-19 20:29] VITALS: PULSE 77; RESP 12; O2SAT 98
[2023-08-19 21:22] VITALS: PULSE 86
[2023-08-19] MEDS: LOSARTAN POTASSIUM 25 MG TABLET PO (21:23)
[2023-08-20 02:06] VITALS: PULSE 73; RESP 12; O2SAT 98
[2023-08-20 04:49] VITALS: BP 134/47; PULSE 88; RESP 18; TEMP 36.6; O2SAT 97
--- NOTE | 2023-08-20 07:47 | WPDNEUROSGPN ---
Progress Note: A&P Assessment and Plan (1) Status post lumbar spinal arthrodesis: Code(s): Z98.1 - Arthrodesis status Status: Acute Plan Discharge home today Wound care and activity restrictions reviewed yesterday Ok to shower today and get incision wet Restart Eliquis 1 week after surgery Follow up with Dr Collado in clinic as scheduled Subjective Date/time seen: 08/20/23 07:47 Interval history: Doing well overnight. Voiding independently since saez was removed. Feels ready to go home today. No leg pain or paresthesias today. Review of Systems Review of Systems: All systems reviewed & are unremarkable except as noted in HPI and below Exam Narrative: AOx4 Incision c/d/i with dermabond in place Full strength in lower extremities Sensation intact Objective Data Vital Signs Vital Signs: Vital Signs - 24 hr 08/19/23 07:59 08/19/23 08:24 08/19/23 08:20 Temperature Pulse Rate 88 Respiratory Rate Blood Pressure Pulse Oximetry Oxygen Delivery Room Air Room Air 08/19/23 11:21 08/19/23 20:11 08/19/23 20:29 Temperature 97.9 F 97.8 F Pulse Rate 71 79 77 Respiratory Rate 18 18 12 Blood Pressure 125/50 L 142/58 H Pulse Oximetry 100 100 98 Oxygen Delivery CPAP 08/19/23 21:22 08/20/23 02:06 08/19/23 20:00 Temperature Pulse Rate 86 73 Respiratory Rate 12 Blood Pressure Pulse Oximetry 98 Oxygen Delivery CPAP Room Air 08/20/23 04:49 Temperature 97.9 F Pulse Rate 88 Respiratory Rate 18 Blood Pressure 134/47 L Pulse Oximetry 97 Oxygen Delivery Intake/Output Intake/Output: Intake & Output 08/17/23 08/18/23 08/19/23 08/20/23 23:59 23:59 23:59 23:59 Intake Total 2660 1690 100 Output Total 80 1210 Balance 2580 480 100 Meds/Results Medications: Active Medications Generic Name Dose Route Start Last Admin Trade Name Freq PRN Reason Stop Dose Admin Acetaminophen 500 mg 08/18/23 16:21 08/19/23 16:42 Acetaminophen 500 Mg Tablet PO 500 mg QID PRN Administration Fever Hydrocodone Bitart/Acetaminophen 1 tab 08/18/23 16:21 08/19/23 21:22 Hydrocodone/Acetaminophen (*Crx) 5-325 Mg Tablet PO 1 tab Q4H PRN Administration Mild Pain (1-3) Hydrocodone Bitart/Acetaminophen 1 tab 08/18/23 16:21 Hydrocodone/Acetaminophen (*Crx) 10-325 Mg Tablet PO Q4H PRN Moderate Pain (4-6) Al Hydrox/Mg Hydrox/Simethicone 20 ml 08/18/23 16:21 Mag Hydrox/Al Hydrox/Simeth 30 Ml Udc PO Q4H PRN Indigestion/Heartburn Atorvastatin Calcium 40 mg 08/19/23 09:00 08/19/23 08:24 Atorvastatin 40 Mg Tablet PO 40 mg DAILY TRAVIS Administration Bisacodyl 10 mg 08/18/23 16:21 Bisacodyl 10 Mg Suppository RECTAL DAILY PRN Constipation Buspirone HCl 10 mg 08/18/23 16:21 Buspirone Hcl 10 Mg Tablet PO DAILY PRN Anxiety Carvedilol 12.5 mg 08/18/23 21:00 08/19/23 21:22 Carvedilol 12.5 Mg Tablet PO 12.5 mg Q12HR TRAVIS Administration Cyclobenzaprine HCl 10 mg 08/18/23 16:21 Cyclobenzaprine Hcl 10 Mg Tablet PO TID PRN Muscle Spasms Docusate Sodium 100 mg 08/18/23 21:00 08/19/23 21:23 Docusate Sodium 100 Mg Capsule PO Not Given Q12HR [facility] Ferrous Sulfate 142 mg 08/19/23 09:00 08/19/23 08:24 Ferrous Sulfate Dried 142 Mg Tabcr PO 09/18/23 08:59 142 mg DAILY TRAVIS Administration Furosemide 20 mg 08/19/23 09:00 08/19/23 08:24 Furosemide 20 Mg Tablet PO 20 mg QAM TRAVIS Administration Hydralazine HCl 100 mg 08/18/23 21:00 08/19/23 21:23 Hydralazine Hcl 50 Mg Tablet PO 100 mg Q12HR TRAVIS Administration Hydromorphone HCl 0.5 mg 08/18/23 16:21 Hydromorphone Hcl Inj (*Crx) 1 Mg/Ml Syr IV PUSH Q2H PRN Pain Rated 7-10 Losartan Potassium 25 mg 08/18/23 21:00 08/19/23 21:23 Losartan Potassium 25 Mg Tablet PO 25 mg HS TRAVIS Administration Multivitamins Therapeutic 1 tablet 08/19/23 09:00
[2023-08-20 08:13] VITALS: O2SAT 97
[2023-08-20 08:45] VITALS: PULSE 86
[2023-08-20] MEDS: FERROUS SULFATE DRIED 142 MG TABCR PO (08:45)
[2023-08-20] MEDS: MULTIVITAMINS THERAPEUTIC TAB (*BKC) 1 TABLET PO (08:45)
[2023-08-20] MEDS: DOCUSATE SODIUM 100 MG CAPSULE PO (08:45)
[2023-08-20] MEDS: carvediloL 12.5 MG TABLET PO (08:45)
[2023-08-20] MEDS: hydrALAZINE HCL 50 MG TABLET 100 MG PO (08:45)
[2023-08-20] MEDS: ATORVASTATIN 40 MG TABLET PO (08:45)
[2023-08-20] MEDS: FUROSEMIDE 20 MG TABLET PO (08:45)
--- NOTE | 2023-08-26 17:11 | PM.DS ---
DS: Admitting Diagnosis Discharge Date 08/20/23 Admitting Diagnosis L1-2 stenosis, L5-S1 spondylosis and neuroforaminal stenosis DS: Discharge Diagnosis Discharge Diagnosis (1) Status post lumbar spinal arthrodesis: Code(s): Z98.1 - Arthrodesis status Status: Acute (2) Lumbar stenosis: Code(s): M48.061 - Spinal stenosis, lumbar region without neurogenic claudication Status: Acute DS: Summary Hospital Course Hospital Course: Ms. Abarca presented to the hospital on August [address] Collado; please see the operative note for more details. She was transferred to the floor after surgery. She worked with therapy on POD1 who cleared her for discharge home. Her saez catheter was removed on POD1, and she voided independently. She was determined ready for discharge home on POD2. She was tolerating oral intake, and her pain was controlled. Time Spent with Patient Time attestation: Total time spent providing and/or coordinating discharge services: Exam Narrative: AOx4 Incision c/d/i with dermabond in place Full strength in lower extremities Sensation intact Discharge Plan Discharge Consulting providers: Armand Pitts; Harman Staples; Farooq Caballero Discharging Clinician: Kristyn James Patient Disposition: Home, Self-Care Activity: other - see discharge instructions Diet: as tolerated Wound Care Instructions: follow printed instructions Discharge Instructions: INSTRUCTIONS AFTER YOUR LUMBAR FUSION ? Your incision is covered with skin glue. This will typically peel off on its own in 10-14 days. ? You may shower and get your incision wet with soap and water starting on post-operative day 2 (). Do not submerge the incision under water (like in a bathtub or swimming pool) for 6 weeks after surgery. Never apply ointments or lotions to the incision. ? The incision should be checked daily. Notify the office if there is drainage, redness, or if you have fever with a temperature of over 101 degrees. ? You are encouraged to walk as much as comfortable, with assistance as needed. For example, it may be beneficial to walk short distances hourly during the waking hours and gradually increase walking during your recovery period. Fatigue can be common. ? Avoid any bending, heavy lifting, or twisting movements. ? You have an [id number]-pound lift restriction until further advised by your physician (a gallon of milk weighs eight pounds). ? Make frequent position changes, avoiding long periods of sitting. Try not to sit more than 60 minutes at a time. ? You may engage in sexual activity in two weeks as tolerated. ? No housework, especially vacuuming, making beds, or doing laundry until seen in the office. ? You may walk stairs carefully. ? Minimize long car rides for the first two weeks. You may resume driving when you feel comfortable; however, you may not drive if still taking narcotic pain medications. ? You may restart Eliquis on August 25. ? You should start with Tylenol 1000mg every 6 hours for pain first. If the Tylenol is not effective, you may then take oxycodone. ? The physician may order pain medication and/or muscle relaxers. As time goes by, you should require less of these. Always take your medication as ordered, and only if needed. If you take more than prescribed, it will not be refilled early. If you feel you require narcotic medication refill, kindly give the office a 72-hour notice. No refills are given over the weekend. ? Avoid use of anti-inflammatory medications (like Ibuprofen, Aleve, Advil, Motrin) for up to three months following fusion surgery. Use of these medications may slow healing. ? Resume your usual diet. Constipation is a common problem postop. You may use any over the counter laxative, or stool softener. Always follow the bottle directions. ? Use of nicotine products should be stopped completely. Smoking can slow the
== END 2023-08-20 12:19 | disposition home or self-care (01) ==
LOC: ANHSURGERY 14:51 → ANH3MED 16:12
PROVIDERS: Admitting Provider Neurological Surgery; PCP Internal Medicine; Visit Provider Neurological Surgery
PROC: (CPT 22612; principal; 2023-08-18 10:00)
DX: M48.061 Spinal stenosis, lumbar region without neurogenic claudication (principal); M47.817 Spondylosis without myelopathy or radiculopathy, lumbosacral region; M54.41 Lumbago with sciatica, right side; R26.81 Unsteadiness on feet; E11.9 Type 2 diabetes mellitus without complications; E66.9 Obesity, unspecified; Z68.29 Body mass index [BMI] 29.0-29.9, adult; Z79.1 Long term (current) use of non-steroidal anti-inflammatories (NSAID); Z79.01 Long term (current) use of anticoagulants; Z79.899 Other long term (current) drug therapy
CPT/HCPCS: 20936; 63047; 22630; 22853; 22840; 82948; 97161; 97165; 97530; 97535; 99199; A9270; C1713; G0378; J0690; J1100; J1170; J2250; J2405; J2704; J3010; J7120

== ENCOUNTER 2023-10-19 13:08 | Outpatient (RCR) | payer MEDICARE, OTHER, SELFPAY ==
--- NOTE | 2023-10-19 14:04 | PTOPEVAL1 ---
Assessment and note entered by Keny Martinez Evaluation Information Assessment Status Evaluation Diagnosis lumbar stenosis, L1-2 decompression, L5-S1 fusion Onset 08/18/23 Subjective Information Pt. reports that she underwent surgery on 08/18/23. She states that she was hospitalized for 2 days. She reports that her activity has been walking in the house since surgery. She states that she is currently using a cane for ambulation. She states that she has recently returned to driving. She states that she is doing her laundry and dishes at home. She states that getting out of a chair is difficult. She has noticed she has been very weak since having surgery. She states that she is uncertain about walking long distances and has not attempted to go long distances. She reports she does use a rollator walker in the community for long distance. She reports that her goal would be to be able to walk without her walker. Reported Pain Level Pain Score 3: Self Report Assessment PT Clinical Summary Pt. is an 83 year old female who enters the clinic post lumbar surgery. She presents with functional decline, u.e. weakness, l.e. weakness, impaired gait, impaired balance, high fall risk and pain. Continued skilled PT is indicated in order to improve these areas to allow the pt. to be able to complete all IADL's with improved comfort and efficiency. Plan of Care Interventions Electrical Stimulation,Gait Training,Hot Pack/Cold Pack,Manual Therapy,Neuro Re-education,Patient/ Caregiver Educati,Therapeutic Activities, Therapeutic Exercise PT Services Indicated Yes Treatment Frequency and 3x/week x 10 visits Duration These treatments will address the objective and functional deficits as defined above. The patient will be advanced safely and appropriately in order for the patient to progress towards his/her prior level of function. Additional exercises will be introduced and as well as a comprehensive home exercise program upon discharge, if needed, ?to ensure carryover of functional gains achieved in the clinic. This treatment plan has been reviewed and agreement upon by the patient.
--- NOTE | 2023-10-19 14:05 | OPREHPOC ---
Outpatient Therapy Plan of Care This is a Multidisciplinary Plan of Care that may contain components documented by all disciplines (PT, OT, and ST.) PT Problem 1 PT Problem #1 Knowledge Deficit PT Goal 1 Goal Independent with a HEP addressing strength and endurance Target Visit 2 PT Problem 2 PT Problem #2 Impaired Balance PT Goal 1 Goal Score 19 or greater on the Tinetti Complete 5 time sit to bellstand attendant less than 15 seconds PT Problem 3 PT Problem #3 Impaired Gait PT Goal 1 Goal Pt. will complete the 6 minute walk test with standard cane for a distance of 600' or greater indicating improve gait efficency. Pt. will navigate steps independently with reciprocal pattern Target Visit 10
--- NOTE | 2023-11-04 17:15 | PCPTNOTE ---
patient is not feeling well, and had to cancel her therapy for the rest of the week.
--- NOTE | 2023-11-20 14:33 | OPREHPOC ---
Outpatient Therapy Plan of Care This is a Multidisciplinary Plan of Care that may contain components documented by all disciplines (PT, OT, and ST.) PT Problem 1 PT Problem #1 Knowledge Deficit PT Goal 1 Goal Independent with a HEP addressing strength and endurance Target Visit 2 Progress Met PT Problem 2 PT Problem #2 Impaired Balance PT Goal 1 Goal Score 19 or greater on the Tinetti. not met Complete 5 time sit to business info consultant less than 15 seconds. not met Target Visit 10 Progress Not Met PT Problem 3 PT Problem #3 Impaired Gait PT Goal 1 Goal Pt. will complete the 6 minute walk test with standard cane for a distance of 600' or greater indicating improve gait efficency. not met Pt. will navigate steps independently with reciprocal pattern. met Target Visit 10 Progress Partially Met
--- NOTE | 2023-11-20 14:33 | PTOPDC ---
Assessment and note entered by JT File, PT Evaluation Information Assessment Status Discharge Diagnosis lumbar stenosis, L1-2 decompression, L5-S1 fusion Onset 08/18/23 Subjective Information patient reports she feels pretty good today. she reports she has less pain in the lower back and the R knee. she reports she is having cataract surgery soon, and R knee replacement after that. she reports she will be back to therapy after both surgeries. Reported Pain Level Pain Score 5,3: Self Report Assessment PT Clinical Summary mrs. thornton presents to skilled PT for her 10th skilled therapy visit. today, she displays improvements in performance on balance test, ambulation endurance, and stair ambulation performance. she has met HEP goal, and made partial progress towards gait goal. she reports she is having cataract surgery and knee replacement soon. as this time, plan to DC patient to independent HEP, and await patient to return after knee replacement. Plan of Care PT Services Indicated Yes
--- NOTE | 2023-11-20 14:34 | OPREHPOC ---
Outpatient Therapy Plan of Care This is a Multidisciplinary Plan of Care that may contain components documented by all disciplines (PT, OT, and ST.) PT Problem 1 PT Problem #1 Knowledge Deficit PT Goal 1 Goal Independent with a HEP addressing strength and endurance Target Visit 2 Progress Met PT Problem 2 PT Problem #2 Impaired Balance PT Goal 1 Goal Score 19 or greater on the Tinetti. not met Complete 5 time sit to product support engineer less than 15 seconds. not met Target Visit 10 Progress Not Met PT Problem 3 PT Problem #3 Impaired Gait PT Goal 1 Goal Pt. will complete the 6 minute walk test with standard cane for a distance of 600' or greater indicating improve gait efficency. not met Pt. will navigate steps independently with reciprocal pattern. met Target Visit 10 Progress Partially Met
== END 2023-11-20 14:56 | disposition home or self-care (01) ==
LOC: CHSPT 13:08
PROVIDERS: Visit Provider Physician Assistant
DX: Z48.89 Encounter for other specified surgical aftercare (principal); Z98.1 Arthrodesis status
CPT/HCPCS: 97110; 97112; 97150; 97161

== ENCOUNTER 2023-11-17 09:41 | Outpatient (CLI) | payer MEDICARE, OTHER, SELFPAY ==
--- NOTE | ~2023-11-17 | XR_ITS ---
Lumbosacral Spine: AP and lateral views Clinical History: Arthrodesis COMPARISON: 05/06/2012 Findings: The normal lordotic curve is maintained. There is posterior and interbody fusion extending from L2 through S1. There is mild degenerative change at L1-L2, with minimal grade 1 retrolisthesis i s level.. The sacroiliac joints are normally outlined. Impression: Extensive posterior and interbody fusion from L2 through S1. Degenerative change at L1-L2 level, as detailed above. Reviewed, dictated and finalized at location M. Impression: Extensive posterior and interbody fusion from L2 through S1. Degenerative change at L1-L2 level, as detailed above.
== END 2023-11-17 09:42 | disposition home or self-care (01) ==
PROVIDERS: Visit Provider Neurological Surgery
DX: Z98.1 Arthrodesis status (principal)
CPT/HCPCS: 72100

== ENCOUNTER 2024-04-07 13:46 | Outpatient (RCR) | payer MEDICARE, OTHER, SELFPAY ==
--- NOTE | 2024-04-07 15:24 | OPREHPOC ---
Outpatient Therapy Plan of Care This is a Multidisciplinary Plan of Care that may contain components documented by all disciplines (PT, OT, and ST.) PT Problem 1 PT Problem #1 Knowledge Deficit PT Goal 1 Goal / Goal Update The patient will be independent in a home exercise program. Target Visit 4 PT Problem 2 PT Problem #2 Pain PT Goal 1 Goal / Goal Update The patient will report no greater than 2/10 right knee pain with walking and chicken boner. Target Visit 12 PT Problem 3 PT Problem #3 Impaired Range of Motion PT Goal 1 Goal / Goal Update 1. The patient will demonstrate 0 degrees right knee extension ROM to normalize gait. 2. The patient will demonstrate 120 degrees right knee flexion ROM to navigate stairs reciprocally. Target Visit 12 PT Problem 4 PT Problem #4 Impaired Functional Mobil PT Goal 1 Goal / Goal Update 1. The patient will demonstrate 30% or less self perceived disability per the LEFS questionnaire. 2. The patient will ascend/descend 5 stairs reciprocally. 3. The patient will ambulate 1,000 feet during the 6 minute walk test to improve community ambulation. Target Visit 12 PT Problem 5 PT Problem #5 Impaired Strength PT Goal 1 Goal / Goal Update 1. The patient will demonstrate at least 4/5 right knee and hip strength. 2. The patient will demonstrate 5 repetitions of sit to stand without UE assist demonstrating good functional strength. Target Visit 12
--- NOTE | 2024-04-07 15:24 | PTOPEVAL1 ---
Assessment and note entered by Beatriz Schmidt, PT Evaluation Information Assessment Status Evaluation Onset 02/17/24 Subjective Information Honey Abarca reports she had her right knee replaced on 02/17/24. She reports she had home health PT until 2 weeks ago. She reports she feels unbalanced and is using a rollator in the house and a cane when she gets out. She reports she has not had a lot of pain. She uses tylenol in the am and pm for pain control. She has 3 steps to get in her home and is taking them one at a time. She has no steps inside her home except to the basement and she does not go down there. She has an elevated toilet seat and grab bars as well. Reported Pain Level Pain Score 4: Self Report Assessment PT Clinical Summary Honey Abarca presents 7 weeks s/p right TKA. She is reporting difficulty with walking without an assistive device, balance, stair negotiation, and bending her right knee. She objectively demonstrates decreased right knee flexion and extension AROM, decreased right knee and hip strength, decreased balance, and impaired gait. She is currently a moderate fall risk. She will benefit from skilled PT to address these limitations. Plan of Care Interventions Electrical Stimulation,Gait Training,Hot Pack/Cold Pack,Intermittent Compression,Manual Therapy, Neuro Re-education,Patient/Caregiver Educati, Therapeutic Activities,Therapeutic Exercise PT Services Indicated Yes Treatment Frequency and 2 times a week for 12 visits Duration These treatments will address the objective and functional deficits as defined above. The patient will be advanced safely and appropriately in order for the patient to progress towards his/her prior level of function. Additional exercises will be introduced and as well as a comprehensive home exercise program upon discharge, if needed, ?to ensure carryover of functional gains achieved in the clinic. This treatment plan has been reviewed and agreement upon by the patient.
--- NOTE | 2024-05-09 17:47 | PTOPPROG ---
Assessment and note entered by Ken[facility] Evaluation Information Assessment Status Progress Diagnosis s/p R TKA ICD-10 Condition Codes (PT) Z47.1 Onset 02/17/24 Subjective Information Pt. reports that pain and stiffness are worst in the morning. She reports that she is getting better but still notes some weakness and stiffness that limits her. She is not longer using an AD. Assessment PT Clinical Summary Pt. has attended a total of 10 treatment sessions. She demonstrates progress in regards to gait, strength and ROM. Despite her progress she continues to have stiffness and deficits in regards to gait efficiency. At this time we will continue with 2 remaining sessions on pt. POC focused on mobility mormonism, strength and ROM. Plan of Care Interventions Electrical Stimulation,Gait Training,Hot Pack/Cold Pack,Intermittent Compression,Manual Therapy, Neuro Re-education,Patient/Caregiver Educati, Therapeutic Activities,Therapeutic Exercise PT Services Indicated Yes Treatment Frequency and Continue for 2 remaining sessions on POC focusing Duration on continued mobility and strength improvements, as well as improved gait. These treatments will address the objective and functional deficits as defined above. The patient will be advanced safely and appropriately in order for the patient to progress towards his/her prior level of function. Additional exercises will be introduced and as well as a comprehensive home exercise program upon discharge, if needed, ?to ensure carryover of functional gains achieved in the clinic. This treatment plan has been reviewed and agreement upon by the patient.
--- NOTE | 2024-05-16 15:45 | PTOPPROG ---
Assessment and note entered by Keny [facility] Evaluation Information Assessment Status Progress Diagnosis s/p R TKA ICD-10 Condition Codes (PT) Z47.1 Onset 02/17/24 Subjective Information Pt. reports she is still limited by swelling in her knee. She states that while she is getting better she still has trouble with getting into the community. She states that she still uses her cane, but can only walk for short distances. Assessment PT Clinical Summary Mrs. Abarca has attended a total of 12 treatment sessions focused on strength, ROM, gait and edema control. She demonstrates excellent progress in regards to strength and mobility. Despite this progress there are still concerns regarding gait efficiency and balance. At this time recommend continued treatment altering the focus on improving gait for improved participation in community activities and improving balance to improve safety. Plan of Care Interventions Electrical Stimulation,Gait Training,Hot Pack/Cold Pack,Intermittent Compression,Manual Therapy, Neuro Re-education,Patient/Caregiver Educati, Therapeutic Activities,Therapeutic Exercise PT Services Indicated Yes Treatment Frequency and 2x/week x 8 visits focusing on strength gait Duration efficiency and balance. These treatments will address the objective and functional deficits as defined above. The patient will be advanced safely and appropriately in order for the patient to progress towards his/her prior level of function. Additional exercises will be introduced and as well as a comprehensive home exercise program upon discharge, if needed, ?to ensure carryover of functional gains achieved in the clinic. This treatment plan has been reviewed and agreement upon by the patient.
--- NOTE | 2024-06-17 16:00 | OPREHPOC ---
Outpatient Therapy Plan of Care This is a Multidisciplinary Plan of Care that may contain components documented by all disciplines (PT, OT, and ST.) PT Problem 1 PT Problem #1 Knowledge Deficit PT Goal 1 Goal / Goal Update The patient will be independent in a home exercise program. Target Visit 4 Progress Met PT Problem 2 PT Problem #2 Pain PT Goal 1 Goal / Goal Update The patient will report no greater than 2/10 right knee pain with walking and production support engineer. Target Visit 12 Progress Not Met PT Problem 3 PT Problem #3 Impaired Range of Motion PT Goal 1 Goal / Goal Update 1. The patient will demonstrate 0 degrees right knee extension ROM to normalize gait. 2. The patient will demonstrate 120 degrees right knee flexion ROM to navigate stairs reciprocally. Target Visit 20 Progress Partially Met PT Problem 4 PT Problem #4 Impaired Functional Mobility PT Goal 1 Goal / Goal Update 1. The patient will demonstrate 30% or less self perceived disability per the LEFS questionnaire. Not met 2. The patient will ascend/descend 5 stairs reciprocally. met 3. The patient will ambulate 1,000 feet during the 6 minute walk test to improve community ambulation. Not met 4. Improve Tinetti score to 24 or greater. met Target Visit 20 Progress Partially Met PT Problem 5 PT Problem #5 Impaired Strength PT Goal 1 Goal / Goal Update 1. The patient will demonstrate at least 4/5 right knee and hip strength. 2. The patient will demonstrate 5 repetitions of sit to stand without UE assist demonstrating good functional strength. Target Visit 12 Progress Met
--- NOTE | 2024-06-17 16:00 | PTOPDC ---
Assessment and note entered by JT File, PT Evaluation Information Assessment Status Discharge Diagnosis s/p R TKA ICD-10 Condition Codes (PT) Aftercare following joint replacement surgery Z47. 1 Onset 02/17/24 Subjective Information patient reports she feels good today. she reports no pain in the R knee. she reports she walks holding a cane, but does not use it on the ground. she reports she returns to the surgeon for follow up in 2 weeks. she reports feeling ready to be done with skilled PT today. Reported Pain Level Pain Score 0: Self Report Assessment PT Clinical Summary mrs. thornton presents to skilled PT services for her 20th skilled PT visit s/p R TKA. she has met 60% of goals for skilled PT, but displays full R knee extension, good or better strength of the R hip and knee, and normal gait mechanics/stair ambulation. she will DC skilled PT today and continue with HEP independent at home. Plan of Care PT Services Indicated Yes
== END 2024-06-17 15:30 | disposition home or self-care (01) ==
LOC: CHSPT 13:46
PROVIDERS: Visit Provider Orthopaedic Surgery
DX: Z47.1 Aftercare following joint replacement surgery (principal); Z96.651 Presence of right artificial knee joint
CPT/HCPCS: 97016; 97110; 97112; 97150; 97161; 97530; 97750

== ENCOUNTER 2024-08-17 21:43 | Emergency (ER) | payer MEDICARE, OTHER, SELFPAY ==
[2024-08-17] VITALS (8 sets, daily range): BP systolic 82–136; BP diastolic 53–107; PULSE 88–143; RESP 24; TEMP 35.8; O2SAT 90–99
--- NOTE | ~2024-08-17 | XR_ITS ---
EXAMINATION: XR chest 1V portable DATE: 08/17/2024 22:08 INDICATION: Shortness of breath. TECHNIQUE: A single frontal view of the chest was obtained. COMPARISON: None. FINDINGS: There are patchy airspace opacities in all lung zones bilaterally. No pleural effusion or p neumothorax. The heart size is normal. IMPRESSION: 1. Diffuse lung disease, consistent with pulmonary edema versus pneumonia. Reviewed, dictated and finalized at location A. ZZA DEVELOPER
--- NOTE | ~2024-08-17 | XR_ITS ---
EXAMINATION: XR abdomen gastric tube insert DATE: 08/17/2024 23:59 INDICATION: Nasogastric tube placement. TECHNIQUE: A supine view of the abdomen was obtained. COMPARISON: None. FINDINGS: The lower abdomen is excluded. The nasogastric tube tip is in the stomach. The endotracheal tube tip is 3.5 cm above the victoria. A right internal jugular central venous catheter is seen with t ip at the superior cavoatrial junction. There are changes of anterior posterior fusion procedures in lumbar spine. IMPRESSION: 1. Nasogastric tube tip in the stomach. Reviewed, dictated and finalized at location A. COORDINATOR
--- NOTE | ~2024-08-17 | XR_ITS ---
EXAMINATION: XR chest ET placement DATE: 08/17/2024 23:59 INDICATION: Intubation. TECHNIQUE: A single frontal view of the chest was obtained. COMPARISON: Chest single view at 10:48 PM FINDINGS: There are airspace opacities throughout the lungs bilaterally. No pleural effusion or pneum othorax. The heart size is normal. The endotracheal tube tip is 2.2 cm above the victoria. A right inte rnal jugular central venous catheter is seen with tip at the superior cavoatrial junction. IMPRESSION: 1. Worsened diffuse lung disease, consistent with pulmonary edema versus pneumonia. Reviewed, dictated and finalized at location A. E REPAIRER IMPRESSION: 1. Worsened diffuse lung disease, consistent with pulmonary edema versus pneumo francisco.
--- NOTE | ~2024-08-17 | XR_ITS ---
EXAMINATION: XR chest port-a-cath/central DATE: 08/17/2024 22:53 INDICATION: Central line placement. TECHNIQUE: A single frontal view of the chest was obtained. COMPARISON: Chest view at 10:04 PM FINDINGS: There are patchy airspace opacities in all lung zones bilaterally. No pleural effusion or p neumothorax. The heart size is normal. A right internal jugular central venous catheter is seen with tip at the superior cavoatrial junction. IMPRESSION: 1. Central line tip at the superior cavoatrial junction. 2. Stable diffuse lung disease, consistent with pulmonary edema versus pneumonia. Reviewed, dictated and finalized at location A. ING PROGRAM CHAIR IMPRESSION: 1. Central line tip at the superior cavoatrial junction. 2. Stable diffuse lung disease, consistent with pulmonary edema versus pneumoni a.
--- OUTSIDE RECORDS SUMMARY | 2024-08-17 21:49 | XMS_ITS | Continuity of Care Document ---
Author Organization [facility] Address [address] [place] [address] [address] [place] [address] Phone Care Team Providers Care Blocking Machine Operator Name Role Phone Khoi Good MD, FACS Unavailable Unavailab le Advance Directives Directive Yes / No Effective Date File Name No Information Encounters Encounter Description Practice Location Reason(s) For Visit Diagnoses Date Provider Providers Copied on Encounter [facility], [address], [place], [place], [id number], [place] tel:[phone] SEC Gisselle Thompson No Information [address]. [address], [address], [place], [place], [id number], [place]. tel:[phone] Family History Family Member Type Diagnosis Age At Onset No Information Payers Payer name Insurance type Covered alliance party ID Authoriza tion(s) No Information Social History Type Description Quantity Date Captured Comments Sex Female Smoking Status No Information Chief Complaint And Reason For Visit No Information Reason For Referral Reason For Referral No Information History Of Present Illness Encounter Date Complaint History Of Prese nt Illness No Information Functional Status Date Functional Assessmen t No Information Instructions Date Instruction Additional Infor mation No Information Assessments Type Assessment Date No Information Patient Care Teams Name Effective Dates (start - stop) Status Members No Information
--- OUTSIDE RECORDS SUMMARY | 2024-08-17 21:49 | XMS_ITS | Clinical Summary ---
Author Organization [facility] Address [address] [place] [address] Care Team Providers Care Shoe Designer Name Role Phone Phi Garcia MD Primary Care Provider [phone] Allergies No known active allergies Medications traMADoL (ULTRAM) 50 mg tablet Take 50 mg by mouth. 03/06/2022 Active polyethylene glycol 3350 (MIRALAX) 17 gram/dose Powder Take 17 Grams by mouth daily. Active multivitamin with minerals-lycopen e-lutein (CENTRUM SILVER) 0.4 mg-300 mcg- 250 mcg Tablet per tablet Take 1 Tablet by mouth daily. Active carvediloL (COREG) 12.5 mg tablet Take 12.5 mg by mouth 2 times daily. Active polycarbophil calcium (FIBERCON) 625 mg tablet Take 1 Tablet by mouth 2 times daily. 10/01/2020 Active furosemide (LASIX) 20 mg tablet Take 20 mg by mouth daily. Active spironolactone (ALDACTONE) 25 mg tablet Take 25 mg by mouth daily. Active losartan (COZAAR) 100 mg tablet Take 100 mg by mouth daily. Active atorvastatin (LIPITOR) 40 mg tablet Take 40 mg by mouth daily. Active hydrALAZINE (APRESOLINE) 100 mg Tablet tablet Take 100 mg by mouth 2 times daily. 01/24/2022 Active carbonyl iron (FEOSOL) 45 mg Tablet Take 45 mg by mouth daily. Active Eliquis 2.5 mg tablet Take 2.5 mg by mouth 2 times daily. 07/17/2023 Active Active Problems Problem Noted Date Diagnosed Date Anemia of chronic renal failure, stage 3b 2021 Encounters Date Type Department Care Team Description 08/16/2024 External Device Data [facility]STRACTION Provider, Abstract 07/26/2024 External Device Data [facility] ABSTRACTION Provider, Abstract 07/26/2024 Orders Only [facility] - [id number] Ramy Gibbons MD 07/20/2024 External Device Data [facility]STRACTION Provider, Abstract 07/20/2024 External Device Data [facility]STRACTION Provider, Abstract 07/11/2024 Orders Only [facility] - [address] [place] [id number] Ramy Gibbons MD Chronic anemia 06/27/2024 Orders Only [facility] - [id number] Ramy Gibbons MD Chronic anemia 06/14/2024 Orders Only [facility] - [id number] Ramy Gibbons MD 06/13/2024 Orders Only [facility] - [id number] Ramy Gibbons MD Chronic anemia 05/30/2024 Orders Only [facility] [place] [address] [place] [id number] Ramy Gibbons MD Chronic anemia from Last 3 Months Social History Tobacco Use Types Packs/Day Years Used Date Smoking Tobacco: Never Smokeless Tobacco: Never Tobacco Cessation:Counseling Given: Not Answered Comments Unknown Sex and Gender Information Value Date Recorded Sex Assigned at Not on file Legal Sex Female 3:00 PM CDT Gender Identity Not on file Sexual Orientation Not on file Last Filed Vital Signs Vital Sign Reading Time Taken Comments Blood Pressure 111/62 04/27/2024 2:33 PM CDT Pulse 82 04/27/2024 2:33 PM CDT Temperature 36.6 C (97.8 F) 04/27/2024 2:33 PM CDT Respiratory Rate 14 04/27/2024 2:33 PM CDT Oxygen Saturation 98% 04/27/2024 2:33 PM CDT Inhaled Oxygen Concentration - - Weight 67.8 kg (149 lb 6.4 oz) 04/27/2024 2:33 P M CDT Height 154.9 cm (5' 1 ) 04/02/2022 1:48 PM CDT Body Mass Index 28.23 04/02/2022 1:48 PM CDT Plan of Treatment Health Maintenance Due Date Last Done Comments DTAP/TDAP/TD VACCINES (1 - Tdap) 1959 Traditional Medicare (ACO) Annual Wellness Visit 06/01 PNEUMOCOCCAL VACCINE 65+ YEARS (1 of 1 - PCV) 06/01/19 91 ZOSTER VACCINE (1 of 2) 1991 OSTEOPOROSIS SCREENING 2006 RSV VACCINE (60+ or ) (1 - 1-dose 75+ series) 2016 INFLUENZA VACCINE (#1) 2024 COLORECTAL SCREENING Discontinued 11/01/2021 Colorectal Cancer Screening Discontinued FIT-DNA Q 3 years Discontinued FIT/FOBT Q 1 year Discontinued Flex Sig/CT Colonography Q 5 years Discontinued Procedures Procedure Name Priority Date/Time Associated Diagnosis Comments CBC WITH AUTODIFFERENTIAL Routine 2024 2:12 PM LIVE TRUCK TECHNICIAN CBC WITH DIFFERENTIAL Routine 06/09/2024 10:56 AM LIVE TRUCK TECHNICIAN from Last 3 Months Results * CBC WITH AUTODIFFERENTIAL (07/21/2024 2:12 PM LIVE TRUCK TECHNICIAN) Blood Ramy Gibbons MD HEMATOLOGY ORDERABLES Final Res ult * CBC WITH DIFFERENTIAL (06/09/2024 10:56 AM LIVE TRUCK TECHNICIAN) Blood us Ramy Gibbons MD HEMATOLOGY ORDERABLES Final Res ult from Last 3 Months Insurance MEDICARE PART A AND [employer] Care Teams Shoe Designer Relationship Specialty Start Date End Date Phi Garcia MD [address] [place] [id number] PCP - General Internal Medicine 03/17/22
--- OUTSIDE RECORDS SUMMARY | 2024-08-17 21:49 | XMS_ITS | Encounter Summary ---
Author Organization [facility] Address [address] [place] [address] Care Team Providers Care Sample Patternmaker Name Role Phone Phi Garcia MD Primary Care Provider [phone] Encounter Details Date Type Department Care Team (Late st Contact Info) Description 08/16/2024 External Device Data [facility]STRACTION Provider, Abstract NO ADDRESS ON FILE Social History Tobacco Use Types Packs/Day Years Used Date Smoking Tobacco: Never Smokeless Tobacco: Never Comments Unknown Sex and Gender Information Value Date Recorded Sex Assigned at Not on file Legal Sex Female 3:00 PM CDT Gender Identity Not on file Sexual Orientation Not on file documented as of this encounter Plan of Treatment Not on file documented as of this encounter Visit Diagnoses Not on filedocumented in this encounter Care Teams Sample Patternmaker Relationship Specialty Start Date End Date Phi Garcia MD [address] [place] [address] PCP - General Internal Medicine 03/17/22 documented as of this encounter
--- OUTSIDE RECORDS SUMMARY | 2024-08-17 21:49 | XMS_ITS | Referral Summary ---
Author Organization [facility] Medical Office Building B Address [address] [place] [address] Care Team Providers Care Drug Room Operator Name Role Phone Phi Garcia MD Primary Care Provider [phone] Mitchell Foley MD Unavailable [phone] Encounters Date Type Department Care Team Description 06/30/2024 3:30 PM SENIOR PHP SOFTWARE DEVELOPER Office Visit [facility] Medical [facility] Orthopedics and Sports Medicine [address] [place] [phone] Gris Olea PA Aftercare following right knee joint replacement surgery (Primary Dx) 05/19/2024 7:49 AM SENIOR PHP SOFTWARE DEVELOPER - 05/19/2024 11:59 PM SENIOR PHP SOFTWARE DEVELOPER Hospital Encounter [facility] Medical [facility] Orthopedics and Sports Medicine [address] [place] [phone] Discharge Disposition: Discharge to home or self care 05/19/2024 11:00 AM SENIOR PHP SOFTWARE DEVELOPER Office Visit [facility] Orthopedics and Sports Medicine [address] [place] [phone] Gris Olea PA Aftercare following right knee joint replacement surgery (Primary Dx); S/P total knee arthroplasty, right from Last 3 Months Allergies No known active allergies Medications atorvastatin (LIPITOR) 40 mg tablet take 1 tablet (40MG) by oral route every day 0 2 Active furosemide (LASIX) 20 mg tablet Take 1 tablet (20 mg total) by mouth daily 9 Active hydrALAZINE (APRESOLINE) 100 mg tablet Take 1 tablet (100 mg total) by mouth 2 (two) times a day 9 Active scdaelbd-ref-HQ -lycopen-lutein 0.4-300-250 mg-mcg-mcg tablet Take 1 tablet by mouth daily Active carvedilol (COREG) 12.5 mg tablet Take 1 tablet (12.5 mg total) by mouth 2 (two) times a day with meals Active Fiber Laxative, ca polycarbo, 625 mg tablet Take 1 tablet (625 mg total) by mouth as needed 1 Active Eliquis 2.5 mg tablet Take 1 tablet (2.5 mg total) by mouth 2 (two) times a day 4 Active losartan (COZAAR) 25 mg tablet Take 1 tablet (25 mg total) by mouth nightly 4 Active senna-docusate (PERICOLACE) 8.6-50 mgIndications:c onstipation Take 2 tablets by mouth 2 (two) times a day 60 tablet 2 4 Active ascorbic acid (VITAMIN C) 500 mg tablet,chewable Indications:Vit mont[place] deficiency prevention Take 1 tablet/chew tab (500 mg total) by mouth daily 30 tablet/chew tab 4 Active HYDROcodone-olga lidia taminophen (NORCO) 5-325 mg per tabletIndicatio ns:Pain Take 1-2 tablets by mouth every 4 (four) hours as needed for pain 40 tablet 4 Active Additional Information Patient not taking.Reported on 06/30/2024 ferrous sulfate 325 mg (65 mg of elemental iron) tabletIndicatio ns:Iron Deficiency Anemia Take 45 mg of elemental iron by mouth daily with breakfast Active acetaminophen (TYLENOL ARTHRITIS ORAL) Take 1 tablet/capsule by mouth 2 (two) times a day Active Active Problems Problem Noted Date Diagnosed Date Aftercare following right knee joint replacement surgery 03/05/2024 Sacroiliitis 03/21/2022 DDD (degenerative disc disease), lumbar 09/22/20 22 Degenerative lumbar spinal stenosis 03/20/2022 Lumbar facet arthropathy 03/20/2022 Lumbar radiculopathy 02/13/2022 Primary osteoarthritis of left hip 10/29/2021 Chronic left hip pain 10/29/2021 Chronic pain of right knee 10/29/2021 Tubular adenoma 10/28/2021 Assessment & Plan (10/28/2021 1:48 PM CDT): colonoscopy Dyspepsia 10/28/2021 Assessment & Plan (10/28/2021 1:49 PM CDT): egd Abdominal pain 10/28/2021 Overview (10/28/2021): Added automatically from request for surgery [id number] Greater trochanteric bursitis of left hip 2021 Aftercare following left knee joint replacement surgery 11/23/2018 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 10/15/2018 Lumbar post-laminectomy syndrome-S/P L3-L5 pedic le fusion 10/15/2018 Resolved Problems Problem Noted Date Diagnosed Date Resolved Date Primary osteoarthritis of right knee 09/13/2020 05/18/2024 Primary osteoarthritis of left knee 10/20/2018 11/23/2018 Overview (10/20/2018): Added automatically from request for surgery [id number] Social History Tobacco Use Types Packs/Day Years Used Date Smoking Tobacco: Never Smokeless Tobacco: Never Tobacco Cessation:Counseling Given: Not Answered Alcohol Use Standard Drinks/Week Comments No 0 (1 standard drink = 0.6 oz pur e alcohol) AUDIT-C Answer Date Recorded Frequency of Alcohol Consumption Not on file 02/17/2024 Q2: How many drinks containi ng alcohol do you have on a typical day when you are drinking? Patient does not drink Frequency of Binge Drinking Not on file 01/28 PHQ-2 Answer Date Recorded PHQ-2 Total Score (If total score is 3 or more points, staff should administer the PHQ-9) 0 02/17/2024 Personal Safety Answer Date Recorded Have you ever been in or are you currently in a harmful physical or emotional relationship or is someone making you feel afraid or unsafe? Denies 02/17/2024 Comments No Sex and Gender Information Value Date Recorded Sex Assigned at Not on file Legal Sex Female 3:41 AM SENIOR PHP SOFTWARE DEVELOPER Gender Identity Not on file Sexual Orientation Not on file Last Filed Vital Signs Vital Sign Reading Time Taken Comments Blood Pressure 134/62 06/30/2024 3:27 PM SENIOR PHP SOFTWARE DEVELOPER Pulse 89 06/30/2024 3:27 PM SENIOR PHP SOFTWARE DEVELOPER Temperature 36.6 C (97.8 F) 02/18/2024 11:23 AM CDT Respiratory Rate 20 02/18/2024 11:23 AM CDT Oxygen Saturation 97% 03/29/2024 1:00 PM CDT Inhaled Oxygen Concentration - - Weight 68 kg (150 lb) 06/30/2024 3:27 PM SENIOR PHP SOFTWARE DEVELOPER Height 152.4 cm (5') 06/30/2024 3:27 PM SENIOR PHP SOFTWARE DEVELOPER Body Mass Index 29.29 06/30/2024 3:27 PM SENIOR PHP SOFTWARE DEVELOPER Plan of Treatment Not on file Goals Goal Patient Goal Type Associated Problems Recent Progress Patient-Stated? Author -Pain Behavioral Health Chelsey Hamlin RN Note: Patient will establish a comfort-function goal and identify the pain level that will allow the patient to perform desired activities and achieve an acceptable quality of life. Medical Devices Implanted Type Area Aircraft Machinist Helper Device Identifier Shelf Expiration Date Model / Serial / Lot Shaylee Simplex Hv With Gentamicin Bone Cement Implanted:Qty: 1 on 11/08/2018 by Mitchell Foley MD at [facility] Left: Knee [employer] [id number] 03/28/2019 6195-1-001 / / [id number] [employer] [id number] Attune Cemented Posterior Stabilize Knee Left 4 Narrow Component - [id number] Implanted:Qty: 1 on 11/08/2018 by Mitchell Foley MD at [facility] Left: Knee [employer] 10/26/2025 [id number] / / [id number] [employer] [id number] Attune S+ Cement Fix Bearing Knee 4 Baseplate Tibial - [id number] Implanted:Qty: 1 on 11/08/2018 by Mitchell Foley MD at [facility] Left: Knee [employer] 02/27/2028 [id number] / / [id number] [employer] [id number] Attune 6mm Posterior Stabilize Fix Bearing Knee 4 Insert Tibial - [id number] Implanted:Qty: 1 on 11/08/2018 by Mitchell Foley MD at [facility] Left: Knee [employer] 06/28/2023 [id number] / / [id number] [employer] Attune Fb Tib Base Sz 4 Por [id number] - [id number] Implanted:Qty: 1 on 02/17/2024 by Mitchell Foley MD at [facility] Right: Knee [employer] [id number] 08/26/2033 [id number] / / [id number] [employer] Component Femoral Knee Porous Posterior Stabilized Right Attune Size 4 [place] [id number] - [id number] Implanted:Qty: 1 on 02/17/2024 by Mitchell Foley MD at [facility] Right: Knee [employer] [id number] 09/26/2032 [id number] / / [id number] [employer] Attune 5mm Posterior Stabilize Fix Bearing Knee 4 Insert Tibial [id number] - [id number] Implanted:Qty: 1 on 02/17/2024 by Mitchell Foley MD at [facility] Right: Knee [employer] [id number] 11/26/2028 [id number] / / [id number] Procedures Procedure Name Priority Date/Time Associated Diagnosis Comments XR KNEE RIGHT 3 VIEWS Schedule Routine, Read Routine (OP Routine) 05/19/2024 10:49 AM SENIOR PHP SOFTWARE DEVELOPER Aftercare following right knee joint replacement surgery from Last 3 Months Results * XR Knee Right 3 Views (05/19/2024 10:49 AM SENIOR PHP SOFTWARE DEVELOPER) Anatomical Region Laterality Modality Lower Extremities, Knee Right Digital Radiography Narrative 05/19/2024 2:33 PM SENIOR PHP SOFTWARE DEVELOPER X-ray of the right knee viewed and interpreted. There is no evidence of fracture, subluxation, or bony abnormality. Knee arthroplasty in good position with no interval change. Gris CORONADO IMG XR PROCEDURES Fin al Result from Last 3 Months Insurance [facility]IC[facility] [employer]ET[employer] SENIOR SUPPLEMENT MEDICARE MEDICARE [employer] [place] Advance Directives For more information, please contact: [phone] * Full Code (Latest Code Status on File) Date Activated Date Inactivated Comments 02/17/2024 1:30 PM 02/18/2024 5:38 PM * Full Code Date Activated Date Inactivated Comments 11/01/2021 9:33 AM 11/01/2021 4:56 PM * Full Code Date Activated Date Inactivated Comments 11/01/2021 9:32 AM 11/01/2021 9:33 AM * Full Code Date Activated Date Inactivated Comments 11/08/2018 11:35 AM 11/10/2018 8:06 PM Care Teams Drug Room Operator Relationship Specialty Start Date End Date Phi Garcia MD PCP - General 01/31/10 Mitchell Foley MD [address] [facility] [address]ON [address] [place] [address] Surgeon Orthopedic Surgery 02/18/24
--- OUTSIDE RECORDS SUMMARY | 2024-08-17 21:49 | XMS_ITS | Encounter Summary ---
Author Organization [facility] Address [address] [place] [address] Care Team Providers Care Carver And Checkerer Specials Name Role Phone Phi Garcia MD Primary Care Provider [phone] Encounter Details Date Type Department Care Team (Late st Contact Info) Description 05/09/2022 Telephone [facility] Oncology and Hematology - Nnamdi [address] [facility] [address] [place] [address] Ramy Gibbons MD [address] [facility] [address] [place] [address] Social History Tobacco Use Types Packs/Day Years Used Date Smoking Tobacco: Never Assessed Comments Unknown Sex and Gender Information Value Date Recorded Sex Assigned at Not on file Legal Sex Female 3:00 PM CDT Gender Identity Not on file Sexual Orientation Not on file documented as of this encounter Plan of Treatment Not on file documented as of this encounter Visit Diagnoses Diagnosis Anemia of chronic renal failure, stage 3b (CMS/HCC)- Primary documented in this encounter Care Teams Carver And Checkerer Specials Relationship Specialty Start Date End Date Phi Garcia MD [address] [place] [address] PCP - General Internal Medicine 03/17/22 documented as of this encounter
--- OUTSIDE RECORDS SUMMARY | 2024-08-17 21:49 | XMS_ITS | Clinical Summary ---
Author Organization [facility] Medical Office Building B Address [address] [place] [address] Care Team Providers Care Radiation Control Worker Name Role Phone Phi Garcia MD Primary Care Provider [phone] Mitchell Foley MD Unavailable [phone] Allergies No known active allergies Medications atorvastatin (LIPITOR) 40 mg tablet take 1 tablet (40MG) by oral route every day 0 2 Active furosemide (LASIX) 20 mg tablet Take 1 tablet (20 mg total) by mouth daily 9 Active hydrALAZINE (APRESOLINE) 100 mg tablet Take 1 tablet (100 mg total) by mouth 2 (two) times a day 9 Active sebjltcx-tkb-EY -lycopen-lutein 0.4-300-250 mg-mcg-mcg tablet Take 1 tablet [...] Sacroiliitis 03/21/2022 DDD (degenerative disc disease), lumbar 03/20/20 Degenerative lumbar spinal stenosis 03/20/2022 Lumbar facet arthropathy 03/20/2022 Lumbar radiculopathy 02/13/2022 Primary osteoarthritis of left hip 10/29/2021 Chronic left hip pain 10/29/2021 Chronic pain of right knee 10/29/2021 Tubular adenoma 10/28/2021 Assessment & Plan (10/28/2021 1:48 PM CDT): colonoscopy Dyspepsia 10/28/2021 Assessment & Plan (10/28/2021 1:49 PM CDT): egd Abdominal pain 10/28/2021 Overview (10/28/2021): Added automatically from request for surgery [id number] Greater trochanteric bursitis of left hip 2021 Aftercare following left knee joint replacement surgery 11/23/2018 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 10/15/2018 Lumbar post-laminectomy syndrome-S/P L3-L5 pedic le fusion 10/15/2018 Resolved Problems Problem Noted Date Diagnosed Date Resolved Date Primary osteoarthritis of right knee 09/13/2020 05/18/2024 Primary osteoarthritis of left knee 10/20/2018 11/23/2018 Overview (10/20/2018): Added automatically from request for surgery [id number] Encounters Date Type Department Care Team Description 06/30/2024 3:30 PM METAL BONDER Office Visit [facility] Medical [facility] Orthopedics and Sports Medicine [address] [place] [address] [address] [place] [address] Gris Olea PA Aftercare following right knee joint replacement surgery (Primary Dx) 05/19/2024 11:00 AM METAL BONDER Office Visit [facility] Orthopedics and Sports Medicine [address] [place] [address] [address] [place] [phone] Gris Olea PA Aftercare following right knee joint replacement surgery (Primary Dx); S/P total knee arthroplasty, right 05/19/2024 7:49 AM METAL BONDER - 05/19/2024 11:59 PM METAL BONDER Hospital Encounter [facility] Orthopedics and Sports Medicine [address] [place] [address] [address], [place] [address] Discharge Disposition: Discharge to home or self care from Last 3 Months Surgical History Surgery Date Site/Laterality Comments TOTAL ABDOMINAL HYSTERECTOMY Hysterectomy, total SPINAL FUSION 3 back surgeries JOINT REPLACEMENT 11/08/2018 Left total knee EYE SURGERY 10/28/2023 - 11/27/2023 Bilateral Medical History Medical History Date Comments Diabetes mellitus (HCC) Diabetes Hypercholesterolemia High choles terol; Comments: JWS 12/21/2014 - Hypertension Hypertension, tr eated by PCP Sleep apnea Coronary artery disease MVP, hea rt murmur Arthritis Dysphagia Arrhythmia A-Fib Anemia Family History Medical History Relation Name Comments No Known Problems Brother No Known Problems Daughter No Known Problems Father No Known Problems Mother Coronary artery disease Other 1 Fami ly history of Coronary artery disease; Diabetes Other 2 Family history of Diabetes mellitus; Other Other 3 Family history of Hearing impairment; Hypertension Other 4 Family history of Hypertension; No Known Problems Sister No Known Problems Son Relation Name Status Comments Brother Daughter Father Mother Other 1 Other 2 Other 3 Other 4 Sister Son Social History Tobacco Use Types Packs/Day Years [...] on file Legal Sex Female 3:41 AM METAL BONDER Gender Identity Not on file Sexual Orientation Not on file Obstetrics History Last Filed Vital Signs Vital Sign Reading Time Taken Comments Blood Pressure 134/62 06/30/2024 3:27 PM METAL BONDER Pulse 89 06/30/2024 3:27 PM METAL BONDER Temperature 36.6 C (97.8 F) 02/18/2024 11:23 AM CDT Respiratory Rate 20 02/18/2024 11:23 AM CDT Oxygen Saturation 97% 03/29/2024 1:00 PM CDT Inhaled Oxygen Concentration - - Weight 68 kg (150 lb) 06/30/2024 3:27 PM METAL BONDER Height 152.4 cm (5') 06/30/2024 3:27 PM METAL BONDER Body Mass Index 29.29 06/30/2024 3:27 PM METAL BONDER Plan of Treatment Health Maintenance Due Date Last Done Comments Osteoporosis Screening-Bone Density Scan 1941 Hepatitis B Screening 1959 Zoster Vaccine (1 of 2) 1991 Well Visit 65+ 2006 Covid-19 Vaccine (2023-2 5 season) 2024 04/10/2021, 08/22/2020, 08/01/2020 Influenza Vaccine (#1) 2024 , 04/23/2020, 03/21/2019, Additional history exists Depression Screening 02/03/2025 02/04/2024, 10/29/2021, 10/29/2021 Fall Risk Assessment 02/17/2025 02/18/2024 DTaP/Tdap/Td Vaccine (3 - Td or Tdap) 06/08/2025 06/08/2015, 05/01/2015 Pneumococcal vaccine 65+ Completed 016, 03/29/2015, 03/17/2013 Goals Goal Patient Goal Type Associated Problems Recent Progress Patient-Stated? Author BH-Pain Behavioral Health No Chelsey Loco RN Note: Patient will establish a comfort-function goal and identify the pain level that will allow the patient to perform desired activities and achieve an acceptable quality of life. Medical Devices Implanted Type Area Certified Marine Mechanic Device Identifier Shelf Expiration Date Model / Serial / Lot Shaylee Simplex Hv With Gentamicin Bone Cement Implanted:Qty: 1 on 11/08/2018 by Mitchell Foley MD at [facility] Left: Knee [employer] [id number] 03/28/2019 6195-1-001 / / [id number] [employer] [id number] Attune Cemented Posterior Stabilize Knee Left 4 Narrow Component - [id number] Implanted:Qty: 1 on 11/08/2018 by Mitchell Foley MD at [facility] Left: Knee [employer] 10/26/2025 [id number] / / [id number] [employer] [id number] Attune S+ Cement Fix Bearing Knee 4 Baseplate Tibial - [id number] Implanted:Qty: 1 on 11/08/2018 by Mitchell Foley MD at [facility] Left: Knee [employer] 02/27/2028 [id number] / / [id number] [employer] [id number] Attune 6mm Posterior Stabilize Fix Bearing Knee 4 Insert Tibial - [id number] Implanted:Qty: 1 on 11/08/2018 by Mitchell Foley MD at [facility] Left: Knee [employer] 06/28/2023 [id number] / / [id number] [employer] Attune Fb Tib Base Sz 4 Por [id number] - [id number] Implanted:Qty: 1 on 02/17/2024 by Mitchell Foley MD at [facility] Right: Knee [employer] [id number] 08/26/2033 [id number] / / [id number] [employer] Component Femoral Knee Porous Posterior Stabilized Right Attune Size 4 [place] [employer] [id number] - [id number] Implanted:Qty: 1 on 02/17/2024 by Mitchell Foley MD at [facility] Right: Knee [employer] [id number] 09/26/2032 [id number] / / [id number] [employer] Attune 5mm Posterior Stabilize Fix Bearing Knee 4 Insert Tibial [id number] - [id number] Implanted:Qty: 1 on 02/17/2024 by Mitchell Foley MD at [facility] Right: Knee [employer] [id number] 11/26/2028 [id number] / / [id number] Procedures Procedure Name Priority Date/Time Associated Diagnosis Comments XR KNEE RIGHT 3 VIEWS Schedule Routine, Read Routine (OP Routine) 05/19/2024 10:49 AM METAL BONDER Aftercare following right knee joint replacement surgery from Last 3 Months Results * XR Knee Right 3 Views (05/19/2024 10:49 AM METAL BONDER) Anatomical Region Laterality Modality Lower Extremities, Knee Right Digital Radiography Narrative 05/19/2024 2:33 PM METAL BONDER X-ray of the right knee viewed and interpreted. There is no evidence of fracture, subluxation, or bony abnormality. Knee arthroplasty in good position with no interval change. Gris CORONADO IMG XR PROCEDURES Fin al Result from Last 3 Months Insurance MEDICARE [facility] [place] AETNA SENIOR SUPPLEMENT MEDICARE MEDICARE [facility] [place] Advance Directives For more information, please contact: [phone] * Full Code (Latest Code Status on File) Date Activated Date Inactivated Comments 02/17/2024 1:30 PM 02/18/2024 5:38 PM * Full Code Date Activated Date Inactivated Comments 11/01/2021 9:33 AM 11/01/2021 4:56 PM * Full Code Date Activated Date Inactivated Comments 11/01/2021 9:32 AM 11/01/2021 9:33 AM * Full Code Date Activated Date Inactivated Comments 11/08/2018 11:35 AM 11/10/2018 8:06 PM Care Teams Radiation Control Worker Relationship Specialty Start Date End Date Phi Garcia MD PCP - General 01/31/10 Mitchell Foley MD [address] [place] [address] [place] [address] Surgeon Orthopedic Surgery 02/18/24
--- NOTE | 2024-08-17 21:57 | ED_ITS ---
HPI - SOB/Dyspnea General Chief Complaint: Shortness of Breath/Dyspnea Stated Complaint: shortness of breath Time Seen by Provider: 08/17/24 21:57 Source: patient Mode of arrival: ambulatory Limitations: no limitations History of Present Illness HPI Narrative: 84-year-old female with a history of hypertension, dyslipidemia, diabetes mellitus, chronic anemia, CKD, with a baseline creatinine of 1.5, atrial fibrillation, LVH with diastolic dysfunction with a normal EF, status post bilateral knee replacements, status post back surgery presents to the ED with -- flu-like symptoms for the past 1 week. She went to her primary care physician yesterday where she tested negative for influenza/ COVID and was given Zithromax. -- Worsening shortness of breath for the past 2 days. -- Cough which is nonproductive she called EMS who noted her to be in -- hypoxic respiratory failure with oxygen saturation in the 80s. The patient was placed on supplemental oxygen 6 liters/minute. -- AFib with a rapid ventricular rate of around 150. MD elicited complaint: shortness of breath and cough Pertinent past history: congestive heart failure Onset (ago): day(s) ( Two days) Context: recent illness Timing: constant Severity: severe Known history of: congestive heart failure Associated symptoms: cough and orthopnea Treatment prior to arrival: oxygen Related Data Home Medications ?Medication ?Instructions ?Recorded ?Confirmed ?Last Taken ?Type atorvastatin 40 mg tablet 40 mg PO DAILY 03/17/22 04/19/24 Unknown History ferrous sulfate 140 mg (45 mg 140 mg PO DAILY 10/27/22 04/19/24 Unknown History iron) tablet,extended release carvedilol 12.5 mg tablet 12.5 mg PO BID 12/29/22 04/19/24 08/18/23 History multivitamin 1 tablet PO DAILY 12/29/22 04/19/24 Unknown History buspirone 10 mg tablet 10 mg PO DAILY PRN Anxiety 05/07/23 04/19/24 08/18/23 History losartan 25 mg tablet 25 mg PO HS 05/07/23 04/19/24 Unknown History furosemide 20 mg tablet 20 mg PO QAM 05/12/23 04/19/24 Unknown History hydralazine 100 mg tablet 100 mg PO BID 05/12/23 04/19/24 08/18/23 History acetaminophen 500 mg tablet 500 mg PO QID PRN Pain 08/06/23 04/19/24 08/18/23 07:00 History apixaban 2.5 mg tablet (Eliquis) 2.5 mg BID 08/06/23 04/19/24 08/10/23 History Allergies Allergy/AdvReac Type Severity Reaction Status Date / Time No Known Allergies Allergy Verified 08/18/24 00:44 Review of Systems 2 Review of Systems: All systems reviewed & are unremarkable except as noted in HPI and below Constitutional: Constitutional: Reports weakness Eyes: Eyes: Reports as per HPI and Reports no additional eye complaints ENT: Reports system reviewed and no additional complaints, except as documented and Reports as per HPI Cardiovascular: Cardiovascular: Reports as per HPI and Reports no additional cardiovascular complaints Respiratory: Respiratory: Reports chest congestion, Reports cough and Reports dyspnea Gastrointestinal: Gastrointestinal: Reports as per HPI and Reports no additional gastrointestinal complaints Genitourinary: Genitourinary: Reports no additional female genitourinary complaints and Reports as per HPI Musculoskeletal: Musculoskeletal: Reports no additional musculoskeletal complaints and Reports as per HPI Integumentary/Breasts: Skin/Breast: Reports system reviewed and no additional complaints, except as docu and Reports as per HPI Neurologic: Reports system reviewed and no additional complaints, except as documented and Reports as per HPI Psychiatric: Psychiatric: Reports no additional psychiatric complaints and Reports as per HPI Endocrine: Endocrine: Reports no additional endocrine complaints and Reports as per HPI Hematologic/Lymphatic: Hematologic/Lymphatic: Reports no additional hematologic/lymphatic complaints and Reports as per HPI Allergic/Immunologic: Allergic/Immunologic: Reports no additional allergic/immunologic complaints and Reports as per HPI [facility] Past Medical History Medical History Diabetes Kidney disease History of squamous cell carcinoma Feeling of incomplete bladder emptying Hesitancy of micturition Surgical History Surgical History H/O laminectomy Total knee replacement status H/O breast biopsy H/O arthroscopy of knee H/O: hysterectomy Family History Family History Other Breast cancer Diabetes mellitus Heart disease Hypertension Social History Social History Social History: Honey is very confident filling out medical forms. In the last 12 months she has not received assistance from an organization or program. Smoking status: Never smoker Second hand tobacco smoke exposure: No Additional smoking assessment comments: PT STATES NEVER SMOKED Alcohol intake: never Substance use: never Substance use type: does not use Do You Feel Safe in your Home?: Yes Lack of Transportation: No Lack of Food: Never True Current Housing: I Have Housing Concerned About Future Housing: No Difficulty Paying Gas/Electric Bills: No Difficulty Paying for Meds: No Currently Unemployed: No Education: High School Diploma/GED Difficulty w/ Childcare or Family Care: No Living arrangements: with family Occupation/Education: retired Gender identity (if verbalized by the patient): Female Spiritual care concerns: No Exam 2 Narrative: heart rate of 139. Blood pressure 120/89. Temperature 36?. Oxygen saturation of 93% on 6 L of O2. Const: General: no acute distress ( In acute respiratory distress) and ill appearing Orientation/consciousness: patient oriented x3 HENMT: Head: normal to inspection Ears: external ears normal F olga lidia/Nose/Sinus: Normal external nose present Face and sinus: normal facial exam Mouth: Yes Normal oral and palatal mucosa present Throat: posterior oropharynx normal Eyes: Conjunctivae: conjunctivae normal Pupils: Equal, round and reactive pupils present EOM: EOMs intact bilaterally Direct Ophthalmoscopy: no photophobia Neck: Neck: normal visual inspection, no lymphadenopathy and no meningeal signs Chest: Chest palpation & inspection: normal inspection of the chest Resp: Effort & Inspection: uses accessory muscles Auscultation: crackles, rhonchi and diminished lung sounds Cardio: Rate: tachycardic Rhythm: abnormal rhythm GI: GI Palp: Yes Soft to palpation Auscultation: normal bowel sounds O ther: no tenderness/ rigidity /rebound. : General: Yes no CVA tenderness Back/Spine/Pelvis: Back: no CVA tenderness Skin: General skin exam: normal color Rashes: no rashes Wounds: no wounds Neuro: General: patient oriented x3, moves all extremities, no meningeal signs, no focal motor deficits and CN's II-XI intact bilaterally Speech: n ormal speech Extrem: General: normal to inspection and edema Psych: Mental Status: mental status grossly normal Affect: Anxious affect present Attitude: cooperative Course Course Emergency Course: Atrial fibrillation with a rapid ventricular rate-- patient started on IV amiodarone acute hypoxic respiratory failure secondary to CHF /bilateral lung infiltrates non-STEMI with a troponin of 2949 and a proBNP of greater than 35,000/ Cardiogenic shock acute on chronic renal failure with a BUN/creatinine of 41/2.66 30/1.5 with hyperkalemia with a potassium of 6.1 and metabolic acidosis with a bicarbonate of 14 lactic acidosis shock liver influenza a patient had placement of right IJ central line patient had a cardiac arrest at 11:15 p.m.. Patient had a PA arrest for which she was resuscitated 3 minutes with 1 mg IV epinephrine with ROSC patient was intubated and placed on mechanical ventilation. Patient had copious amounts of frothy pink pulmonary secretions with aspiration. patient had a 2nd PEA arrest at 11:35 a.m. for which she was resuscitated for 7 minutes with 2 rounds of epi, IV bicarbonate with ROSC asystolic cardiac arrest at stat 1:45 a.m.. Family made the patient comfort care. no further resuscitation. Patient pronounced at 1:50 a.m.. Cause of non-STEMI/ CHF/respiratory failure Vital Signs Vital signs: Vital Signs Pulse Rate 143 H 08/17/24 21:43 Pulse Oximetry 90 08/17/24 21:43 Oxygen Delivery Nasal Cannula 08/17/24 21:43 Oxygen Flow Rate 6 08/17/24 21:43 Temperature 35.8 C L 08/17/24 21:53 Pulse Rate 103 H 08/18/24 00:46 Respiratory Rate 12 08/18/24 00:46 Blood Pressure 88/64 L 08/18/24 00:46 Pulse Oximetry 89 L 08/18/24 00:46 Oxygen Delivery Mechanical Ventilation 08/18/24 00:30 Oxygen Flow Rate 6 08/17/24 21:53 Procedures Central Line Placement Right IJ: Central Line Date: 08/17/24 Central Line Time: 23:01 Discussed w/ the patient/family/POA,the placement of a central venous catheter, including its clinical necessity/indication & associated potential risks, benifits and alternatives.: Yes The patient/family/POA understand(s) and acknowledge(s) the need to proceed with central venous catheter insertion as an important element of the patient's clinical management.: Yes Time Out Performed: Yes Patient Placed on Monitor/Pulse Ox: Yes Max. Sterile Barrier Technique: Caps, large sterile sheet and hand hygiene Central Line Prep: 2% chlorhexidine scrub Technique: US-Guided Local Anesthetic: lidocaine 1% Amount of anesthesia used (mL): 4 Post Procedure: sutured in place, good blood return, all ports aspirated, flushed, capped and sterile dressing applied Post Procedure X-Ray: tip of catheter in good position Patient Tolerated Procedure: well Complications: none Intubation Intubation #1: Intubation Date: 08/17/24 Intubation Time: 23:15 sedative: none Assist Device Used: fiber optic device Tube Size (cm): 7.5 Method of Intubation: orotracheal Number of Attempts: 2 Tube Secured Depth (cm): 25 Tube Secured Location: teeth Tube Placement Confirmation: visualized tube passing through cords, equal breath sounds bilaterally and confirmation by capnometry ( confirmed by CO2 monitor) Patient Tolerated Procedure: well Intubation Complications: other ( large amount of frothy secretions) MDM - SOB/Dyspnea MDM Narrative Medical decision making narrative: non-STEMI/ cardiogenic shock CHF exacerbation AFib with rapid ventricular rate acute on chronic renal failure shock liver PEA cardiac arrest x2 asystolic cardiac arrest patient pronounced at 1:50 a.m.. Lab Data 08/17/24 22:00 08/17/24 22:00 Labs: Lab Results 08/17/24 08/18/24 Range/Units 22:00 00:07 WBC 9.6 (4.8-10.8) K/mm3 RBC 4.40 (4.20-5.40) M/mm3 Hgb 12.5 (11.7-13.8) g/dL Hct 41.4 (35.0-42.0) % MCV 94.1 (78.0-102.0) fL MCH 28.4 (27.0-31.0) pg MCHC 30.2 L (32-36) g/dL RDW 14.6 H (11.6-14.4) % Plt Count 216 (150-420) K/mm3 MPV 9.4 (9.2-11.8) fl Immature Gran % (Auto) 0.7 H (0.0-0.0) % Neut % (Auto) 78.1 H (50.0-70.0) % Lymph % (Auto) 14.6 L (18.0-42.0) % [place] % (Auto) 6.1 (2.0-11.0) % Eos % (Auto) 0.3 L (1.0-6.0) % Baso % (Auto) 0.2 (0.0-1.0) % Lymph # (Auto) 1.40 (1.10-4.50) K/mm3 [place] # (Auto) 0.59 (0.10-0.90) K/mm3 Eos # (Auto) 0.03 (0.02-0.50) K/mm3 Baso # (Auto) 0.02 (0.00-0.10) K/mm3 Abs Immat Gran (auto) 0.07 H (0.00-0.00) K/mm3 Absolute Neuts (auto) 7.49 H (1.70-7.20) K/mm3 Absolute Nucleated RBC 0.00 (0.00-0.00) K/mm3 Nucleated RBC % 0.0 (0-0.0) % Minute Volume Not Reportable Vent Mode Assist control Tidal Volume Not Reportable PEEP 8 cmH2O Peak Inspir Pressure Not Reportable Pressure Support Not Reportable Sodium 134 L (136-145) mmol/L Potassium 6.1 H (3.5-5.1) mmol/L Chloride 95 L (98-108) mmol/L Carbon Dioxide 14 L (21-32) mmol/L Anion Gap 25 H (4-12) mmol/L BUN 41 H (7-18) mg/dL Creatinine 2.66 H (0.55-1.02) mg/dL Estim Creat Clear Calc 14 ml/min Estimated GFR 17 L (59 - ) Glucose 174 H (70-99) mg/dL Calculated Osmolality 292 (285-295) mOsm/kg Lactic Acid 13.5 H (0.4-2.0) mmol/L Calcium 8.9 (8.5-10.1) mg/dL Magnesium 2.1 (1.8-2.4) mg/dL Total Bilirubin 0.8 (0.00-1.00) mg/dL AST 340 H (15-37) U/L ALT 303 H (14-59) U/L Alkaline Phosphatase 162 H (46-116) U/L Troponin I 2949.3 H* (0.00-60.4) ng/L NT-Pro-B Natriuret Pep > 40939 H (0-450) pg/mL Total Protein 8.2 (6.4-8.2) g/dL Albumin 3.7 (3.4-5.0) g/dL Lipase 53 (16-77) U/L TSH 6.70 H (0.36-3.74) uIU/mL Influenza A (RT-PCR) Positive A (Negative) Influenza B (RT-PCR) Negative (Negative) RSV (RT-PCR) Negative (Negative) SARS-CoV-2 RNA (RT-PCR) Negative (Negative) ABG Data ABG results: 08/18/24 00:07 Puncture Site Right brachial ABG pH 7.23 L ABG pCO2 17.7 L* ABG pO2 221.6 H ABG HCO3 7.3 L ABG O2 Saturation 98.7 H ABG Base Excess -17.7 L Oxyhemoglobin 95.8 O2 Delivery Device Ventilator O2 Liters/Min Not Reportable Vent Rate 12 ECG Data EKG #1: ECG completion date: 08/17/24 ECG completion time: 21:46 Interpretation: atrial fibrillation with a ventricular rate of 147. Right axis deviation. Left bundle-branch block pattern. No ST elevation noted. Critical Care Time Critical Care Time Critical Care Time: Yes Total Critical Care Time: 70 Discharge Plan Discharge Clinical Impression: Non-ST elevated myocardial infarction (non-STEMI), Acute hypoxemic respiratory failure, Cardiac arrest CHF exacerbation Qualifiers: Heart failure type: unspecified Qualified Code(s): I50.9 - Heart failure, unspecified Patient Disposition: Condition: Terminal Patient Language: Samoan Prescriptions: No Action ferrous sulfate 140 mg (45 mg iron) Tablet Extended Release 140 mg PO DAILY carvedilol 12.5 mg tablet 12.5 mg PO BID Rx Instructions: must administer with a meal/food buspirone 10 mg tablet 10 mg PO DAILY PRN (Reason: Anxiety) losartan 25 mg tablet 25 mg PO HS atorvastatin 40 mg tablet 40 mg PO DAILY multivitamin Tablet 1 tablet PO DAILY furosemide 20 mg tablet 20 mg PO QAM hydralazine 100 mg tablet 100 mg PO BID Eliquis 2.5 mg tablet 2.5 mg BID acetaminophen 500 mg Tablet 500 mg PO QID PRN (Reason: Pain) Follow-up/Referrals: Phi Garcia MD [Primary Care Provider] - Time of Disposition: 01:50
--- NOTE | 2024-08-17 22:02 | ECG_ITS ---
Test Date: 2024-08-17 21:46:09 Measurements Intervals [place] Rate: 147 P: 0 IN: 0 QRS: 8 QRSD: 164 T: 129 QT: 318 QTc: 497 Interpretive Statements ATRIAL FIBRILLATION WITH RAPID VENTRICULAR RESPONSE WITH ABERRANT CONDUCTION OR VENTRICULAR PREMATURE COMPLEXES LEFT BUNDLE BRANCH BLOCK BASELINE ARTIFACT- I, II, III, AVR, AVL, AVF, V1-V6 ABNORMAL ECG No previous ECG available for comparison Electronically Signed On 08-18-2024 05:59:43 CHAR DUST CLE[employer]ER AND SALVAGER by Jose Downing D.O.
--- OUTSIDE RECORDS SUMMARY | 2024-08-17 22:06 | XMS_ITS | Continuity of Care Document ---
Author Organization [facility] Address [address] [place] [address] [address] [place] [address] Phone Care Team Providers Care Manager Office Services Name Role Phone Khoi Good MD, FACS Unavailable Unavailab le Advance Directives Directive Yes / No Effective Date File Name No Information Encounters Encounter Description Practice Location Reason(s) For Visit Diagnoses Date Provider Providers Copied on Encounter [facility], [address], [place], [place], [id number], [place] tel:[phone] SEC Gisselle Thompson No Information [address] Latisha Westfall. [address], [address], [place], [place], [id number], [place]. tel:[phone] Family History Family Member Type Diagnosis Age At Onset No Information Payers Payer name Insurance type Covered libertarian ID Authoriza tion(s) No Information Social History [...]
--- OUTSIDE RECORDS SUMMARY | 2024-08-17 22:06 | XMS_ITS | Clinical Summary ---
Author Organization [facility] Address [address] [place] [id number] Care Team Providers Care Hvac Estimator Name Role Phone Phi Garcia MD Primary Care Provider [phone] Allergies No known active allergies Medications No known medications Social History Tobacco Use Types Packs/Day Years Used Date Smoking Tobacco: Never Comments Unknown Sex and Gender Information Value Date Recorded Sex Assigned at Not on file Legal Sex Female 8:38 PM CDT Gender Identity Not on file Sexual Orientation Not on file Last Filed Vital Signs Vital Sign Reading Time Taken Comments Blood Pressure 164/60 06/11/2022 3:49 PM SR. CONSULTANT Pulse 80 06/11/2022 3:49 PM SR. CONSULTANT Temperature 36.7 C (98 F) 06/11/2022 12:48 PM SR. CONSULTANT Respiratory Rate 18 06/11/2022 3:49 PM SR. CONSULTANT Oxygen Saturation 100% 06/11/2022 3:49 PM SR. CONSULTANT Inhaled Oxygen Concentration - - Weight 73.5 kg (162 lb) 06/11/2022 12:48 PM SR. CONSULTANT Height 157.5 cm (5' 2 ) 06/11/2022 12:48 PM SR. CONSULTANT Body Mass Index 29.63 06/11/2022 12:48 PM SR. CONSULTANT Plan of Treatment Health Maintenance Due Date Last Done Comments DTaP, Tdap and Td Vaccines ( 1 - Tdap) 1960 Zoster Vaccines (1 of 2) 1991 Annual Medicare Wellness Visit 2006 Dexa Scan (General) 2006 RSV Immunization or 60+ Years (1 - 1-dose 75+ series) 2016 Pneumococcal Vaccine: 65+ Years (2 of 2 - PPSV23 or PCV20) 07/12/2016 07/12/2015 COVID-19 Vaccine (2023-2 5 season) 2024 Influenza Adult (#1) 2024 03/21/2019, 06/02/2017, 04/01/2016 Meningococcal B Vaccine Aged Out No l onger eligible based on patient's age to complete this topic Meningococcal Vaccine Aged Out No rené ariela eligible based on patient's age to complete this topic RSV Immunizations Under 20 Months Aged Out No longer eligible b ased on patient's age to complete this topic Insurance [employer] Care Teams Hvac Estimator Relationship Specialty Start Date End Date Phi Garcia MD [address] [place] [address] PCP - General INTERNAL MEDICINE 03/07/19
--- OUTSIDE RECORDS SUMMARY | 2024-08-17 22:06 | XMS_ITS | Encounter Summary ---
Author Organization [facility] Address [address] [place] [address] Care Team Providers Care Cvt Tech Name Role Phone Phi Garcia MD Primary Care Provider [phone] Encounter Details Date Type Department Care Team (Late st Contact Info) Description 12/04/2018 Abstract SFL CONVERSION [address] [place] [address] , Generic Conversion, Social History Tobacco Use Types Packs/Day Years [...] on filedocumented in this encounter Care Teams Cvt Tech Relationship Specialty Start Date End Date Phi Garcia MD [address] [place] [address] PCP - General INTERNAL MEDICINE 03/07/19 documented as of this encounter
[2024-08-17 22:11] LABS: Basophils Absolute Auto 0.02 K/mm3 (0.00-0.10); Basophils Percent Auto 0.2 % (0.0-1.0); Eosinophils Absolute Auto 0.03 K/mm3 (0.02-0.50); Eosinophils Percent Auto 0.3 % (1.0-6.0); Hematocrit 41.4 % (35.0-42.0); Hemoglobin 12.5 g/dL (11.7-13.8); Immature Granulocyte Absolute 0.07 K/mm3 (0.00-0.00); Immature Granulocyte Percent A 0.7 % (0.0-0.0); Lymphocytes Percent Auto 14.6 % (18.0-42.0); Mean Corpuscular HGB Conc 30.2 g/dL (32-36); Mean Corpuscular Hemoglobin 28.4 pg (27.0-31.0); Mean Corpuscular Volume 94.1 fL (78.0-102.0); Mean Platelet Volume 9.4 fl (9.2-11.8); Monocytes Absolute Auto 0.59 K/mm3 (0.10-0.90); Monocytes Percent Auto 6.1 % (2.0-11.0); Neutrophils Absolute Auto 7.49 K/mm3 (1.70-7.20); Neutrophils Percent Auto 78.1 % (50.0-70.0); Platelet Count Result 216 K/mm3 (150-420); Red Cell Distribution Width 14.6 % (11.6-14.4); White Blood Count 9.6 K/mm3 (4.8-10.8)
[2024-08-17 22:35] LABS: Alanine Aminotransferase 303 U/L (14-59); Albumin Level 3.7 g/dL (3.4-5.0); Alkaline Phosphatase 162 U/L (46-116); Anion Gap 25 mmol/L (4-12); Aspartate Amino Transferase 340 U/L (15-37); Bilirubin,Total 0.8 mg/dL (0.00-1.00); Blood Urea Nitrogen 41 mg/dL (7-18); Calcium 8.9 mg/dL (8.5-10.1); Carbon Dioxide 14 mmol/L (21-32); Chloride 95 mmol/L (98-108); Estimated CRCL calculation 14 ml/min; Estimated Glomerular Filt Rate 17; Glucose 174 mg/dL (70-99); Lipase 53 U/L (16-77); Magnesium 2.1 mg/dL (1.8-2.4); Osmolality Calculated 292 mOsm/kg (285-295); Potassium 6.1 mmol/L (3.5-5.1); Sodium 134 mmol/L (136-145); Total Protein 8.2 g/dL (6.4-8.2)
[2024-08-17 22:39] LABS: Troponin I 2949.3 ng/L (0.00-60.4)
--- NOTE | 2024-08-17 22:40 | PC.NURSE ---
verbal consent was given for CVC insertion per patient.
[2024-08-17 22:44] LABS: Lactic Acid Reflex 13.5 mmol/L (0.4-2.0)
[2024-08-17 22:47] LABS: SARS-CoV-2 RNA PCR Negative (Negative)
[2024-08-17 22:52] LABS: Influenza A QL RT-PCR Positive (Negative); Influenza B QL RT-PCR Negative (Negative); RSV RNA, RT-PCR Negative (Negative)
[2024-08-17 22:58] LABS: NT Pro B Type Natriuretic Pept > 35000 pg/mL (0-450)
[2024-08-17] MEDS: AMIODARONE 150 MG/D5W 100 ML 150 MG/100 ML BAG 600 MG IV CONT (23:00)
[2024-08-17] MEDS: NOREPINEPHRINE 8 MG/D5W 250 ML 8 MG/250 ML BAG 9.38 MG IV CONT (23:05)
[2024-08-17] MEDS: FUROSEMIDE INJ 40 MG/4 ML VIAL IV PUSH (23:06)
[2024-08-17] MEDS: AMIODARONE 360 MG/D5W 200 ML 360 MG/200 ML BAG 33.33 MG IV CONT (23:12)
[2024-08-17] MEDS: SODIUM BICARBONATE 8.4% 50 MEQ/50 ML SYRINGE IV PUSH (23:29)
[2024-08-18] VITALS (27 sets, daily range): BP systolic 0–95; BP diastolic 0–64; PULSE 0–104; RESP 11–15; O2SAT 87–93
[2024-08-18 00:08] LABS: Base Excess ABG -17.7 mmol/L (0-2); HCO3 ABG 7.3 mmol/L (23-29); Oxygen Saturation ABG 98.7 % (95-97); Oxyhemoglobin 95.8 % (94-100); PO2 ABG 221.6 mmHg (75-85); pH ABG 7.23 (7.35-7.45)
[2024-08-18 00:10] LABS: Device VENTILATOR; Modified Allen's Test Pass; PCO2 ABG 17.7 mmHg (35-45); Site Drawn RIGHT BRACHIAL
[2024-08-18 00:11] LABS: Arterial Blood Gas Vent Mode ASSIST CONTROL; Arterial Blood Gas Ventilator rate 12 /MIN
[2024-08-18 00:12] LABS: Arterial Blood Gas PEEP 8 cmH2O
[2024-08-18 01:06] LABS: Reflex Lactic Acid Yes or No Add Lactic
[2024-08-18] MEDS: VASOPRESSIN INJ 100 UNITS in DEXTROSE 5% 95 ML 12 ML IV CONT (01:26)
--- NOTE | 2024-08-18 01:54 | PC.NURSE ---
This RN was at bedside, administering medications when the following events happened: 230- Levo started for hypotension 230- IV lasix given 231- Amio bolus/gtt started 2315-witnessed cardiac/respiratory arrest, compressions started, pulse present and palpable with compressions code blue called. 2317- asystole, no pulse palpable, compressions held, epi given, compressions resumed, etco 2- 16. 2318- ROSC acheived at this time, patient moving hand, stopped compressions for pulse check, afib RVR 130s on monitor. 2322- 127/96 2324- gag reflex intact at this time, 2 versed given, BHAKTI 50 given, patient intubated with 7.5, 23 at teeth, ETT place proctor applied. HR 131, 14 fr NGT and 16fr saez catheter placed. 2329- amp of bicarb given 2330-HR 154 afib RVR, 136/77 2335- RN still at bedside, aystole on monitor, no pulse when checked, compressions started, femoral pulse present, palpable with compressions, 75/56, levo increased to 40 per ERP verbal order. 2337- compressions held, pulse check, PEA-asystole, compressions resumed, femoral pulse palpable with compressions. 2339- epi given, compressions held, aystole, no pulse when checked, compressions resumed, pulse present, palpable with compressions. 2340 amp bicarb given 2342- epi given, still PEA/asystole on moitor, no pulse, compressions resumed, ETCO2- 7, femoral pulse palpable with compressions. 2345- compressions held, pulse palpable, AFIB on monitor. 0126- family at bedside, ERP called over for pt hypotension worse, Vasopressin added to patient per ERP order. 0130- vasopressin increased, BP continued to decrease, HR decreased to lows 80s-high 70s. During this time, this RN spoke with family extensively about patient prognosis and patient wants. Family is understanding of prognosis at this time, will discuss further if needed. This RN at bedside talking with family about patient medications and adding more pressors for life sustaining measures. 0143- patient blood pressure continues to drop despite increase in pressors, O2 sats decreased as well, RT at bedside adjusting ventilator settings, patient QRS voltage decreased significantly. As it was pointed out to family, patient HR dropped to asystole again, compressions started with family in room, per their wishes. ETCO2-0. 0144- epi given 0145- family wishes to stop any life sustaining measures at this time. TOD 0145. 0146- all medications turned off, ventilator turned off. 0158- [employer]- Christian Arellano notified- body released 0201- [facility] notified- body released- she is ineligible for donation due to flu A positive. Ref # [id number]. DC to [facility]- body released to Christian Arellano- credit director. Family all in agreeance at this time.
== END 2024-08-18 03:20 | disposition expired ==
PROVIDERS: Emergency Provider Internal Medicine Critical Care Medicine; PCP Internal Medicine
DX: I21.4 Non-ST elevation (NSTEMI) myocardial infarction (principal); J96.01 Acute respiratory failure with hypoxia; I46.9 Cardiac arrest, cause unspecified; E11.9 Type 2 diabetes mellitus without complications; I10 Essential (primary) hypertension; E78.5 Hyperlipidemia, unspecified; I48.91 Unspecified atrial fibrillation; Z85.828 Personal history of other malignant neoplasm of skin; Z20.822 Contact with and (suspected) exposure to COVID-19
CPT/HCPCS: 31500; 36415; 36556; 36600; 71045; 80053; 82805; 83605; 83690; 83735; 83880; 84443; 84484; 85025; 87637; 92950; 93005; 96365; 96366; 96367; 96375; 99291; C1751; J0171; J0282; J1940; J2250; J2598